=== PATIENT | female | born 1960 | race Caucasian/White ===

== ENCOUNTER 2021-04-12 16:42 | Outpatient (CLI) | payer MEDICAID | END 2021-04-12 16:43 | disposition home or self-care (01) | LOC: COV 16:42 | PROVIDERS: ATTEND Internal Medicine Gastroenterology | DX: Z01.812 Encounter for preprocedural laboratory examination (principal); K52.9 Noninfective gastroenteritis and colitis, unspecified; R63.4 Abnormal weight loss; Z20.822 Contact with and (suspected) exposure to COVID-19 ==

== ENCOUNTER 2022-10-26 11:35 | Outpatient (CLI) | payer MEDICAID | END 2022-10-26 11:36 | disposition critical access hospital (66) | LOC: EMS 11:35 | DX: R40.20 Unspecified coma (principal); J96.91 Respiratory failure, unspecified with hypoxia; J96.92 Respiratory failure, unspecified with hypercapnia; E16.2 Hypoglycemia, unspecified; I95.9 Hypotension, unspecified | CPT/HCPCS: A0425; A0433; A0999 ==

== ENCOUNTER 2022-10-26 11:58 | Inpatient (IN) | payer MEDICAID ==
--- NOTE | 2022-10-26 12:09 | ED Physician Documentation ---
History of Present Illness - Stated complaint Stated Complaint: FOUND DOWN - History obtained from History obtained from: EMS - Additonal information Additional information: 62-year-old woman brought in by ambulance. Reportedly has a history of both brain and lung cancer, recent diagnosis and is reportedly full code. Per EMS, she frequently has episodes of altered mental status, and the family just generally puts her back to bed. She had one today that lasted longer than usual and there for CPR was started, although there was no confirmation of pulselessness. On EMS arrival she did have a pulse and was intubated. She had some low blood pressures And periintubation was given dopamine although that has stopped on arrival. Of note the paramedics stated it was an empty bottle of Haldol, liquid at the bedside. It did not belong to her. Reportedly the family said it had liquid in it previously but now it was empty. Review of Systems Unable to obtain: [facility] PD PAST MEDICAL HISTORY - Present Medications Home Medications: Ambulatory Orders Medication Instructions Recorded Confirmed Albuterol Sulf [Ventolin Hfa 1 - 2 puffs INH Q4HR PRN 10/26/22 10/26/22 Inhaler] Duloxetine HCl [Cymbalta] 60 mg PO DAILY 10/26/22 10/26/22 Metoprolol Succinate [Toprol Xl] 50 mg PO DAILY 10/26/22 10/26/22 Omeprazole Magnesium 20 mg PO DAILY 10/26/22 10/26/22 Promethazine [Phenergan] 25 mg PO Q6H PRN 10/26/22 10/26/22 Trazodone HCl 300 mg PO HS 10/26/22 10/26/22 clonazePAM [Clonazepam] 1 mg PO DAILY PRN 10/26/22 10/26/22 estradioL [Estrace] 1 mg PO DAILY 10/26/22 10/26/22 methocarbamoL [Methocarbamol] 750 mg PO 10/26/22 oxyCODONE [Roxicodone] 5 mg PO Q8HR PRN 10/26/22 10/26/22 - Allergies Allergies/Adverse Reactions: Allergies Allergy/AdvReac Type Severity Reaction Status Date / Time Unable to Assess Allergy Verified 10/26/22 12:06 PD ED PE NORMAL - Vitals Vital signs reviewed: Yes - General General: Other (She is unresponsive but does seem to have some spontaneous movement albeit very intermittent.) - HEENT HEENT: Other (Small pupils, nonreactive; Endotracheal tube in place) - Cardiac Cardiac: RRR, No murmur - Respiratory Respiratory: Other (On the ventilator with bilateral breath sounds) - Abdomen Abdomen: Non tender - Derm Derm: Normal color, Warm and dry - Extremities Extremities: No edema, No calf tenderness / cord - Neuro Eye Opening: None Motor: None Verbal: None GCS Score: 3 Results - Vitals Vitals: Vital Signs - 24 hr 10/26/22 10/26/22 10/26/22 12:06 12:25 12:56 Temperature 35.8 C L Heart Rate 93 16 L 87 Respiratory 18 18 Rate Blood Pressure 104/61 76/54 L O2 Saturation 99 100 10/26/22 10/26/22 10/26/22 13:00 13:15 13:22 Temperature 33.9 C L 36.2 C L 36.2 C L Heart Rate 82 88 86 Respiratory 18 18 18 Rate Blood Pressure 79/62 L 113/84 H 119/78 O2 Saturation 100 100 100 10/26/22 10/26/22 10/26/22 13:30 13:42 13:55 Temperature 36.3 C L 36.4 C L 36.6 C Heart Rate 86 83 79 Respiratory 18 18 18 Rate Blood Pressure 109/74 92/69 129/82 H O2 Saturation 100 100 100 10/26/22 10/26/22 10/26/22 14:00 14:18 15:40 Temperature 36.6 C 36.9 C 37.8 C Heart Rate 76 81 80 Respiratory 18 18 18 Rate Blood Pressure 113/89 H 101/76 106/79 O2 Saturation 100 10 L 100 10/26/22 10/26/22 15:48 16:10 Temperature 37.8 C 37.9 C Heart Rate 82 78 Respiratory 18 18 Rate Blood Pressure 108/79 127/88 H O2 Saturation 100 100 Oxygen O2 Source Mechanical ventilator - EKG (time done) 1253 Rate: Rate (enter#) (88) Rhythm: NSR [place]: LAD Intervals: Normal GA, Prolonged QT QRS: Normal Ischemia: Non specific changes - Labs Labs: Laboratory Tests 10/26/22 10/26/22 10/26/22 12:30 12:31 12:31 WBC 34.4 H RBC 4.35 Hgb 10.8 L Hct 36.0 L MCV 82.8 MCH 24.8 L MCHC 30.0 L RDW 15.9 H Plt Count 424 MPV 10.0 Neut # (Auto) [employer] Lymph # (Auto) [employer] Rains # (Auto) [employer] Eos # (Auto) [employer] Baso # (Auto) [employer] Absolute Nucleated RBC [employer] Total Counted 100 Band Neuts % (Manual) 3 Abnorm Lymph % (Manual) 0 Myelocytes % 1 H Nucleated RBC % [employer] Neutrophils # (Manual) 29.9 H Lymphocytes # (Manual) 1.4 L Monocytes # (Manual) 2.8 H Eosinophils # (Manual) 0.0 Basophils # (Manual) 0.0 Differential Comment MANUAL DIFFERENTIAL PT 12.7 H INR 1.1 Bld Gas Analysis Time 1242 Sample Site LEFT RADIAL ABG pH 7.21 L ABG pCO2 54 H ABG pO2 268 H* ABG HCO3 21.3 L ABG Total CO2 23.0 ABG O2 Saturation 99 H ABG Base Excess -6.7 L [place] Test POSITIVE VBG pH VBG pCO2 VBG pO2 VBG HCO3 VBG Total CO2 VBG O2 Saturation VBG Base Excess Respiration Rate 16 O2 Delivery Device VENTILATOR Vent Mode ASSIST/CONTROL Tidal Volume 450 PEEP 5 Sodium Potassium Chloride Carbon Dioxide Anion Gap BUN Creatinine Estimated GFR (MDRD) Glucose Lactic Acid Calcium Phosphorus Magnesium Total Bilirubin AST ALT Alkaline Phosphatase Total Creatine Kinase Total Protein Albumin Globulin Albumin/Globulin Ratio TSH Urine Color Urine Clarity Urine pH Ur Specific [place] Urine Protein Urine Glucose (UA) Urine Ketones Urine Occult Blood Urine Nitrite Urine Bilirubin Urine Urobilinogen Ur Leukocyte Esterase Urine RBC Urine WBC Ur Squamous Epith Cells Urine Bacteria Urine Casts Ur Microscopic Review Urine Culture Comments Nasal Adenovirus (PCR) Nasal B. parapertussis DNA (PCR) Nasal Coronavir 229E PCR Nasal Coronavir HKU1 PCR Nasal Coronavir NL63 PCR Nasal Coronavir OC43 PCR Nasal Enterovir/Rhinovir PCR Nasal Influenza B PCR Nasal Influenza A PCR Nasal Parainfluen 1 PCR Nasal Parainfluen 2 PCR Nasal Parainfluen 3 PCR Nasal Parainfluen 4 PCR Nasal RSV (PCR) Nasal B.pertussis DNA PCR Nasal C.pneumoniae (PCR) Wilfred Human Metapneumo PCR Nasal M.pneumoniae (PCR) Nasal SARS-CoV-2 (PCR) Salicylates Urine Opiates Screen Ur Oxycodone Screen Urine Methadone Screen Ur Propoxyphene Screen Acetaminophen Ur Barbiturates Screen Ur Tricyclics Screen Ur Phencyclidine Scrn Ur Amphetamine Screen U Methamphetamines Scrn U Benzodiazepines Scrn Urine Cocaine Screen U Cannabinoids Screen Ethyl Alcohol 10/26/22 10/26/22 10/26/22 12:31 12:31 12:31 WBC RBC Hgb Hct MCV MCH MCHC RDW Plt Count MPV Neut # (Auto) Lymph # (Auto) Rains # (Auto) Eos # (Auto) Baso # (Auto) Absolute Nucleated RBC Total Counted Band Neuts % (Manual) Abnorm Lymph % (Manual) Myelocytes % Nucleated RBC % Neutrophils # (Manual) Lymphocytes # (Manual) Monocytes # (Manual) Eosinophils # (Manual) Basophils # (Manual) Differential Comment PT INR Bld Gas Analysis Time Sample Site ABG pH ABG pCO2 ABG pO2 ABG HCO3 ABG Total CO2 ABG O2 Saturation ABG Base Excess [place] Test VBG pH VBG pCO2 VBG pO2 VBG HCO3 VBG Total CO2 VBG O2 Saturation VBG Base Excess Respiration Rate O2 Delivery Device Vent Mode Tidal Volume PEEP Sodium 145 Potassium 2.7 L Chloride 112 H Carbon Dioxide 22 Anion Gap 11.0 BUN 37 H Creatinine 1.7 H Estimated GFR (MDRD) 30 L Glucose 13 L* Lactic Acid 2.0 Calcium 6.1 L* Phosphorus 6.6 H Magnesium 0.8 L* Total Bilirubin 0.4 AST 64 H ALT 19 Alkaline Phosphatase 49 Total Creatine Kinase 176 Total Protein 6.3 L Albumin 3.0 L Globulin 3.3 Albumin/Globulin Ratio 0.9 L TSH 7.10 H Urine Color Urine Clarity Urine pH Ur Specific [place] Urine Protein Urine Glucose (UA) Urine Ketones Urine Occult Blood Urine Nitrite Urine Bilirubin Urine Urobilinogen Ur Leukocyte Esterase Urine RBC Urine WBC Ur Squamous Epith Cells Urine Bacteria Urine Casts Ur Microscopic Review Urine Culture Comments Nasal Adenovirus (PCR) Nasal B. parapertussis DNA (PCR) Nasal Coronavir 229E PCR Nasal Coronavir HKU1 PCR Nasal Coronavir NL63 PCR Nasal Coronavir OC43 PCR Nasal Enterovir/Rhinovir PCR Nasal Influenza B PCR Nasal Influenza A PCR Nasal Parainfluen 1 PCR Nasal Parainfluen 2 PCR Nasal Parainfluen 3 PCR Nasal Parainfluen 4 PCR Nasal RSV (PCR) Nasal B.pertussis DNA PCR Nasal C.pneumoniae (PCR) Wilfred Human Metapneumo PCR Nasal M.pneumoniae (PCR) Nasal SARS-CoV-2 (PCR) Salicylates < 6.0 Urine Opiates Screen Ur Oxycodone Screen Urine Methadone Screen Ur Propoxyphene Screen Acetaminophen < 10 L Ur Barbiturates Screen Ur Tricyclics Screen Ur Phencyclidine Scrn Ur Amphetamine Screen U Methamphetamines Scrn U Benzodiazepines Scrn Urine Cocaine Screen U Cannabinoids Screen Ethyl Alcohol < 5.0 10/26/22 10/26/22 10/26/22 12:31 12:44 13:00 WBC RBC Hgb Hct MCV MCH MCHC RDW Plt Count MPV Neut # (Auto) Lymph # (Auto) Rains # (Auto) Eos # (Auto) Baso # (Auto) Absolute Nucleated RBC Total Counted Band Neuts % (Manual) Abnorm Lymph % (Manual) Myelocytes % Nucleated RBC % Neutrophils # (Manual) Lymphocytes # (Manual) Monocytes # (Manual) Eosinophils # (Manual) Basophils # (Manual) Differential Comment PT INR Bld Gas Analysis Time Sample Site ABG pH ABG pCO2 ABG pO2 ABG HCO3 ABG Total CO2 ABG O2 Saturation ABG Base Excess [place] Test VBG pH 7.156 L VBG pCO2 55.8 H VBG pO2 169.5 H VBG HCO3 19.3 L VBG Total CO2 21.0 L VBG O2 Saturation 98.6 H VBG Base Excess -9.6 L Respiration Rate O2 Delivery Device Vent Mode Tidal Volume PEEP Sodium Potassium Chloride Carbon Dioxide Anion Gap BUN Creatinine Estimated GFR (MDRD) Glucose Lactic Acid Calcium Phosphorus Magnesium Total Bilirubin AST ALT Alkaline Phosphatase Total Creatine Kinase Total Protein Albumin Globulin Albumin/Globulin Ratio TSH Urine Color YELLOW Urine Clarity CLEAR Urine pH 6.0 Ur Specific [place] >=1.030 H Urine Protein 100 H Urine Glucose (UA) NEGATIVE Urine Ketones NEGATIVE Urine Occult Blood MODERATE H Urine Nitrite NEGATIVE Urine Bilirubin NEGATIVE Urine Urobilinogen 0.2 (NORMAL) Ur Leukocyte Esterase NEGATIVE Urine RBC 0-5 Urine WBC 0-3 Ur Squamous Epith Cells FEW Squamous Urine Bacteria Few Urine Casts 0-2 Hyaline Casts Ur Microscopic Review INDICATED Urine Culture Comments NOT INDICATED Nasal Adenovirus (PCR) NOT DETECTED Nasal B. parapertussis DNA (PCR) NOT DETECTED Nasal Coronavir 229E PCR NOT DETECTED Nasal Coronavir HKU1 PCR NOT DETECTED Nasal Coronavir NL63 PCR NOT DETECTED Nasal Coronavir OC43 PCR NOT DETECTED Nasal Enterovir/Rhinovir PCR NOT DETECTED Nasal Influenza B PCR NOT DETECTED Nasal Influenza A PCR NOT DETECTED Nasal Parainfluen 1 PCR NOT DETECTED Nasal Parainfluen 2 PCR NOT DETECTED Nasal Parainfluen 3 PCR NOT DETECTED Nasal Parainfluen 4 PCR NOT DETECTED Nasal RSV (PCR) NOT DETECTED Nasal B.pertussis DNA PCR NOT DETECTED Nasal C.pneumoniae (PCR) NOT DETECTED Wilfred Human Metapneumo PCR NOT DETECTED Nasal M.pneumoniae (PCR) NOT DETECTED Nasal SARS-CoV-2 (PCR) NOT DETECTED Salicylates Urine Opiates Screen NEGATIVE Ur Oxycodone Screen NEGATIVE Urine Methadone Screen POSITIVE H Ur Propoxyphene Screen NEGATIVE Acetaminophen Ur Barbiturates Screen NEGATIVE Ur Tricyclics Screen NEGATIVE Ur Phencyclidine Scrn NEGATIVE Ur Amphetamine Screen NEGATIVE U Methamphetamines Scrn NEGATIVE U Benzodiazepines Scrn NEGATIVE Urine Cocaine Screen NEGATIVE U Cannabinoids Screen POSITIVE H Ethyl Alcohol 10/26/22 10/26/22 15:34 15:34 WBC RBC Hgb Hct MCV MCH MCHC RDW Plt Count MPV Neut # (Auto) Lymph # (Auto) Rains # (Auto) Eos # (Auto) Baso # (Auto) Absolute Nucleated RBC Total Counted Band Neuts % (Manual) Abnorm Lymph % (Manual) Myelocytes % Nucleated RBC % Neutrophils # (Manual) Lymphocytes # (Manual) Monocytes # (Manual) Eosinophils # (Manual) Basophils # (Manual) Differential Comment PT INR Bld Gas Analysis Time Sample Site ABG pH ABG pCO2 ABG pO2 ABG HCO3 ABG Total CO2 ABG O2 Saturation ABG Base Excess [place] Test VBG pH 7.232 L VBG pCO2 52.2 H VBG pO2 59.4 H VBG HCO3 21.5 L VBG Total CO2 23.1 L VBG O2 Saturation 90.2 H VBG Base Excess -6.3 L Respiration Rate O2 Delivery Device Vent Mode Tidal Volume PEEP Sodium 140 Potassium 2.9 L Chloride 106 Carbon Dioxide 21 Anion Gap 13.0 BUN 42 H Creatinine 1.9 H Estimated GFR (MDRD) 27 L Glucose 141 H Lactic Acid Calcium 7.6 L Phosphorus 4.5 Magnesium 1.6 L Total Bilirubin AST ALT Alkaline Phosphatase Total Creatine Kinase Total Protein Albumin Globulin Albumin/Globulin Ratio TSH Urine Color Urine Clarity Urine pH Ur Specific [place] Urine Protein Urine Glucose (UA) Urine Ketones Urine Occult Blood Urine Nitrite Urine Bilirubin Urine Urobilinogen Ur Leukocyte Esterase Urine RBC Urine WBC Ur Squamous Epith Cells Urine Bacteria Urine Casts Ur Microscopic Review Urine Culture Comments Nasal Adenovirus (PCR) Nasal B. parapertussis DNA (PCR) Nasal Coronavir 229E PCR Nasal Coronavir HKU1 PCR Nasal Coronavir NL63 PCR Nasal Coronavir OC43 PCR Nasal Enterovir/Rhinovir PCR Nasal Influenza B PCR Nasal Influenza A PCR Nasal Parainfluen 1 PCR Nasal Parainfluen 2 PCR Nasal Parainfluen 3 PCR Nasal Parainfluen 4 PCR Nasal RSV (PCR) Nasal B.pertussis DNA PCR Nasal C.pneumoniae (PCR) Wilfred Human Metapneumo PCR Nasal M.pneumoniae (PCR) Nasal SARS-CoV-2 (PCR) Salicylates Urine Opiates Screen Ur Oxycodone Screen Urine Methadone Screen Ur Propoxyphene Screen Acetaminophen Ur Barbiturates Screen Ur Tricyclics Screen Ur Phencyclidine Scrn Ur Amphetamine Screen U Methamphetamines Scrn U Benzodiazepines Scrn Urine Cocaine Screen U Cannabinoids Screen Ethyl Alcohol - Rads (name of study) Initial single view chest x-ray showed appropriate placement of the endotr acheal tube without obvious abnormality otherwise. Radiology: Final report received, EMP read indepedently Second chest x-ray for line placement showed right IJ CVC in SVC without complication. Radiology: Final report received, EMP read indepedently CT of the head without contrast demonstrates left temporal hypodensity consistent with known underlying malignancy. No traumatic findings. Radiology: Final report received, EMP read indepedently CT of the cervical spine is without acute abnormality Radiology: Final report received, EMP read indepedently CT of the chest demonstrates satisfactory position of support lines and malignant collapse of the right lower lobe Radiology: Final report received, EMP read indepedently CT of the abdomen pelvis without contrast is unremarkable except for what was noted on the lung CT above. Radiology: Final report received, EMP read indepedently Procedures - Central Line - Major Central Line Preparation: Unable to obtain consent, Time out completed, Ultrasound used, Sterile prep and drape Central line location: Right IJ Central line type: Triple lumen Central line aftercare: Chlorhexidine disc placed, Secured, Placement confirmed, No pneumothorax, No complications, Bundle checklist complete, Pt tolerated well PD Medical Decision Making - ED course ED course: 62-year-old woman presents obtunded, prehospital may have had a cardiac arrest but no clear evidence of pulselessness but did receive a few minutes with CPR. She is a recent diagnosis of " lung and brain cancer" but the details of that are unknown. Reportedly the diagnosis was may be just a week ago. Per EMS there was a empty bottle of Haldol liquid that was not hers at the bedside that had previously been full so there is a concern for overdose. Differential diagnosis is broad and also includes intracranial hemorrhage related to tumors. She was seen at the bedside immediately upon arrival, stabilized on the ventilator and a central line was placed. She was noted to be hypoglycemic "low " and was given amp of D50. 12:40 PM: She has become hypotensive and her temperature is noted to be 33 degrees. Levophed is begun through the central line and a warming unit placed. Update 12:48 PM, ABG reviewed. She has a respiratory acidosis. Advised RT Sree to increase respiratory rate from 14->16, and increase tidal volume from 450->550 and decrease oxygen from 100% to titrate down. Update 12:54 PM, fingerstick blood sugar after the administration of D50 only in the mid 70s, will start a D10 drip. 1:30pm: Granddaughter is at the bedside and is advocating for the patient. She states that about 2 weeks ago she was diagnosed with lung cancer with mets to brain. If she overdosed on Haldol which she corroborates that she had a bottle of Haldol that had belonged to the patient's mother when she was in hospice, it would have been about 5 AM today. There was no talk of suicidal ideation at any point, but had made some statements like "I am going to go see my ancestors soon." Her blood sugar dropped again into the teens and D50 was repeated, this was before the D10 drip had been started. She also has significant electrolyte abnormalities including hypokalemia, hypomagnesemia, and hypocalciumia all of which were repleted IV. I called poison control to get their input.Given her hypotension, shock, and hypothermia sepsis is on the differential, albeit unlikely given the above data, but we will treat presumptively with IV antibiotics. Specifically the institutional broad-spectrum protocol of cefepime, Flagyl, and vancomycin. Spoke with Dr. Hubbard, poison control marine gear keeper who basically recommends close monitoring of her electrolytes and vital signs. He did note that it is possible that her recurrent hypoglycemia could be from an insulin like paraneoplastic syndrome from her lung cancer but that would not change treatment. The granddaughter brought in the med list and she has been on dexamethasone and she could be in adrenal crisis so we will bolus her with dexamethasone.Spoke with Dr. Hubbard, poison control marine gear keeper who basically recommends close monitoring of her electrolytes and vital signs. He did note that it is possible that her recurrent hypoglycemia could be from an insulin like paraneoplastic syndrome from her lung cancer but that would not change treatment. The granddaughter brought in the med list and she has been on dexamethasone and she could be in adrenal crisis so we will bolus her with dexamethasone. Update 4 PM, the nurse had difficulty with the NG, I personally placed an NG in the right nares confirmed with auscultated noise over the stomach and return of gastric juices. Repeat electrolytes demonstrate improvement in all indices, potassium went from 2.7 up to 2.9, calcium went from 6.1 up to 7.6, magnesium we nt from 0.8 up to 1.6. We will continue repletion. Blood sugar has been better. Awaiting completion of CT results for admission to ICU. Her temperature now is 37.9 so she is trending up and Tylenol was administered rectally. - Critical Care Time(min): 85 Time Includes: Direct patient care, Review records, Reassess patient, Document care, Coordinate care, Medical consult, Family consult for tx dec, See progress note Data interpretation: Labs, Pulse ox Procedures included in critical care time: Peripheral IV Procedures excluded from critical care time: Central IV, EKG Departure - Departure Disposition: 66 [facility] DC/Xfer Clinical Impression: Hypoglycemia, Hypomagnesemia, Hypokalemia, Hypocalcemia Hypotension Qualifiers: Hypotension type: unspecified hypotension type Qualified Code(s): I95.9 - Hypotension, unspecified Hypothermia Qualifiers: Encounter type: initial encounter Qualified Code(s): T68.XXXA - Hypothermia, initial encounter Respiratory failure Qualifiers: Chronicity: acute Respiratory failure complication: unspecified whether with hypoxia or hypercapnia Qualified Code(s): J96.00 - Acute respiratory failure, unspecified whether with hypoxia or hypercapnia Condition: Critical
[2022-10-26] MEDS ORDERED: PROPOFOL 1000 MG/100 ML 1,000 MG/100 ML BOTTLE IV STA (12:18)
[2022-10-26] MEDS ORDERED: PROPOFOL 1000 MG/100 ML 1,000 MG/100 ML BOTTLE IV ONE ×2 (12:20→21:04)
[2022-10-26] MEDS ORDERED: DEXTROSE 50% ABBOJECT 25 GM/50 ML SYRINGE ONE (12:30)
[2022-10-26] MEDS ORDERED: DEXTROSE 50% ABBOJECT 25 GM/50 ML SYRINGE IVP STA ×2 (12:36→13:28)
[2022-10-26] MEDS ORDERED: NOREPINEPHRINE/D5W 8 MG/250 ML BAG IV ONE (12:43)
[2022-10-26 12:46] LABS: BASOPHILS % (AUTO) 0.2 %; HGB - HEMOGLOBIN 10.8 g/dL (12.0-16.0); LYMPHOCYTES % (AUTO) 5.2 %; MEAN CORPUSCULAR HEMOGLOBIN 24.8 pg (27.0-31.0); MEAN CORPUSCULAR VOLUME 82.8 fL (81.0-99.0); MONOCYTES % (AUTO) 8.2 %; NEUTROPHILS % (AUTO) 83.8 %; PLT - PLATELET COUNT 424 10^3/uL (130-450); RED BLOOD COUNT 4.35 10^6/uL (4.20-5.40); RED CELL DISTRIBUTION WIDTH 15.9 % (12.0-15.0); VBG BASE EXCESS -9.6 mmol/L (-2 - +2); VBG HCO3 19.3 mmol/L (23-28); VBG OXYGEN SATURATION 98.6 % (60-80); VBG PCO2 55.8 mmHg (41-51); VBG PO2 169.5 mmHg (25-47); WHITE BLOOD COUNT 34.4 x10^3/uL (4.8-10.8)
[2022-10-26 12:46] LABS: MUDS CUTOFF CONCENTRATIONS CUTOFF CONC BELOW:
[2022-10-26 12:47] LABS: ABG HCO3 21.3 mmol/L (22.0-26.0); ABG PCO2 54 mmHg (34-45); ABG PH 7.21 (7.35-7.45)
[2022-10-26 12:48] LABS: ABG BASE EXCESS -6.7 mmol/L (-2.0-3.0); ABG MODE OF VENTILATION ASSIST/CONTROL; ABG OXYGEN SATURATION 99 % (94-98); ABG RESPIRATORY RATE 16 b/min; ALLEN TEST POSITIVE
[2022-10-26] MEDS ORDERED: NOREPINEPHRINE/D5W 8 MG/250 ML BAG IV STA (12:48)
--- NOTE | 2022-10-26 12:48 | XRAY Report ---
PROCEDURE: Chest for Line Placement INDICATIONS: intubated TECHNIQUE: One view of the chest was acquired. COMPARISON: None. FINDINGS: Surgical changes and devices: ET tube in satisfactory position, the tip which projects approximately 4.6 cm above the nolvia. Transcutaneous pacer. Lungs and pleura: No pleural effusions or pneumothorax. Lungs are clear. Mediastinum: Mediastinal contours appear normal. Heart size is normal. Bones and chest wall: No suspicious bony lesions. Overlying soft tissues appear unremarkable. IMPRESSION: ET tube in satisfactory position. No gross pulmonary infiltrates. Reviewed by: Madan Reyes MD on 10/26/2022 12:46 PM PST Approved by: Madan Reyes MD on 10/26/2022 12:46 PM PST Station ID: [id number]
--- NOTE | 2022-10-26 12:50 | XRAY Report ---
PROCEDURE: Chest for Line Placement INDICATIONS: RIJ CVC TECHNIQUE: One view of the chest was acquired. COMPARISON: None. FINDINGS: Surgical changes and devices: ET tube tip is approximately 4 cm above the nolvia. Right internal jug ular central venous catheter tip is in SVC.. Lungs and pleura: No pleural effusions or pneumothorax. Lungs are clear. Mediastinum: Mediastinal contours appear normal. Heart size is mildly enlarged. Bones and chest wall: No suspicious bony lesions. Overlying soft tissues appear unremarkable. IMPRESSION: Right internal jugular central venous catheter tip is in SVC. ET tube tip is approximately 4 cm above the nolvia. No focal infiltrate, pleural effusion or pneumothorax. Reviewed by: Javi Urrutia MD on 10/26/2022 12:49 PM PST Approved by: Javi Urrutia MD on 10/26/2022 12:49 PM PST Station ID: [id number]
[2022-10-26 12:53] LABS: ABNORMAL LYMPHS % (MANUAL) 0 %
[2022-10-26 12:55] LABS: INR 1.1 (0.8-1.2); PT - PROTHROMBIN TIME 12.7 secs (9.9-12.6)
[2022-10-26 13:00] LABS: ABG PO2 268 mmHg (80-100)
[2022-10-26 13:01] LABS: VBG PH 7.156 (7.31-7.41)
[2022-10-26 13:01] LABS: AMPHETAMINE SCREEN,URINE NEGATIVE (NEGATIVE); BARBITURATE SCREEN,UR NEGATIVE (NEGATIVE); BENZODIAZEPINES SCREEN, URINE NEGATIVE (NEGATIVE); COCAINE SCREEN URINE NEGATIVE (NEGATIVE); METHADONE SCREEN, URINE POSITIVE (NEGATIVE); METHAMPHETAMINES SCREEN, URINE NEGATIVE (NEGATIVE); OPIATE SCREEN, URINE NEGATIVE (NEGATIVE); OXYCODONE SCREEN, URINE NEGATIVE (NEGATIVE); PROPOXYPHENE SCREEN, URINE NEGATIVE (NEGATIVE); THC CANNABINOID SCREEN, URINE POSITIVE (NEGATIVE); TRICYCLIC ANTIDEPRESSANT,URINE NEGATIVE (NEGATIVE)
[2022-10-26 13:04] LABS: BILIRUBIN,URINE NEGATIVE (NEGATIVE); GLUCOSE, URINE (UA) NEGATIVE (NEGATIVE); KETONES,URINE (UA) NEGATIVE (NEGATIVE); LEUKOCYTE ESTERASE, URINE NEGATIVE (NEGATIVE); NITRITE,URINE NEGATIVE (NEGATIVE); OCCULT BLOOD,URINE MODERATE (NEGATIVE); PROTEIN,URINE 100 mg/dL (NEGATIVE); UROBILINOGEN,URINE 0.2 (NORMAL) E.U./dL (NORMAL)
[2022-10-26 13:06] LABS: CLARITY,URINE CLEAR (CLEAR)
[2022-10-26 13:07] LABS: BACTERIA,URINE Few /HPF (None Seen); RBC,URINE 0-5 /HPF (0-5); SQUAMOUS EPITHELIAL CELL,UR FEW Squamous (<= Few); WBC,URINE 0-3 /HPF (0-5)
[2022-10-26 13:14] LABS: BAND NEUTROPHILS % (MANUAL) 3 %; DIFFERENTIAL COMMENT MANUAL DIFFERENTIAL; LYMPHOCYTES # (MANUAL) 1.4 10^3/uL (1.5-3.5); LYMPHOCYTES % (MANUAL) 4 %; MONOCYTES # (MANUAL) 2.8 10^3/uL (0.0-1.0); MYELOCYTES % (MANUAL) 1 %; NEUTROPHILS # (MANUAL) 29.9 10^3/uL (1.5-6.6)
[2022-10-26 13:18] LABS: ACETAMINOPHEN < 10 ug/mL (10-30); ALBUMIN/GLOBULIN RATIO 0.9 (1.0-2.2); ALKALINE PHOSPHATASE 49 IU/L (42-121); ALT ALANINE AMINOTRANSFERASE 19 IU/L (10-60); AST ASPARTATE AMINOTRANSFERASE 64 IU/L (10-42); BILIRUBIN,TOTAL 0.4 mg/dL (0.2-1.0); BUN - BLOOD UREA NITROGEN 37 mg/dL (6-20); CARBON DIOXIDE - CO2 22 mmol/L (21-32); CHLORIDE 112 mmol/L (101-111); CK- CREATINE KINASE 176 IU/L (22-269); CREATININE 1.7 mg/dL (0.4-1.0); ETOH - ETHANOL < 5.0 mg/dL; GFR - MDRD 30 (>89); PHOSPHORUS 6.6 mg/dL (2.5-4.6); POTASSIUM 2.7 mmol/L (3.5-5.0); SALICYLATE < 6.0 mg/dL; SODIUM 145 mmol/L (135-145); TOTAL PROTEIN 6.3 g/dL (6.7-8.2)
[2022-10-26 13:28] LABS: CALCIUM 6.1 mg/dL (8.5-10.3); GLUCOSE 13 mg/dL (70-100); MAGNESIUM 0.8 mg/dL (1.7-2.8)
[2022-10-26] MEDS ORDERED: MAGNESIUM SULFATE 2 GRAM 2 GM/50 ML BAG IV ONE ×2 (13:28→16:05)
[2022-10-26] MEDS ORDERED: DEXTROSE 10% 1,000 ML IV STA (13:28)
[2022-10-26] MEDS ORDERED: CALCIUM CHLORIDE ABBOJECT 1000MG/10 ML SYRINGE IVP STA ×2 (13:28→16:05)
[2022-10-26] MEDS ORDERED: POTASSIUM CHLOR 10 MEQ/100 ML 10 MEQ/100 ML BAG IV STA (13:35)
[2022-10-26] MEDS ORDERED: metroNIDAZOLE 500 MG/100 ML 500 MG/100 ML BAG IV STA (13:36)
[2022-10-26] MEDS ORDERED: VANCOMYCIN INJ 1.5 GM in SODIUM CHLORIDE 0.9% 500 ML IV STA (13:36)
[2022-10-26] MEDS ORDERED: CEFEPIME 2 GM in SODIUM CHLORIDE 0.9% MINIBAG 100 ML IV STA (13:36)
[2022-10-26] MEDS ORDERED: DEXAMETHASONE 10 MG/ML VIAL IVP STA (13:44)
[2022-10-26] MEDS ORDERED: iohexoL-300 100 ML VIAL ONE (14:20)
[2022-10-26] MEDS ORDERED: fentaNYL 100 MCG/2 ML VIAL IVP STA (14:38)
[2022-10-26] MEDS: fentaNYL 2,500 MCG in SODIUM CHLORIDE 0.9% 200 ML IV STA (14:45)
[2022-10-26 15:42] LABS: B. PARAPERTUSSIS- RESP PCR PAN NOT DETECTED; B. PERTUSSIS- RESP PCR PANEL NOT DETECTED; C. PNEUMONIAE- RESP PCR PANEL NOT DETECTED; CORONAVIRUS 229E-RESP PCR NOT DETECTED; CORONAVIRUS HKU1-RESP PCR NOT DETECTED; CORONAVIRUS NL63-RESP PCR NOT DETECTED; CORONAVIRUS OC43-RESP PCR NOT DETECTED; HUMAN METAPNEUMOVIRUS NOT DETECTED; INFLUENZA A- RESP PCR PANEL NOT DETECTED; INFLUENZA B - RESP PCR PANEL NOT DETECTED; M. PNEUMONIAE- RESP PCR PANEL NOT DETECTED; PARAINFLUENZA VIRUS 1 NOT DETECTED; PARAINFLUENZA VIRUS 2 NOT DETECTED; PARAINFLUENZA VIRUS 3 NOT DETECTED; PARAINFLUENZA VIRUS 4 NOT DETECTED; RHINOVIRUS/ENTEROVIRUS NOT DETECTED; RSV- RESP PCR PANEL NOT DETECTED; SARS-CoV-2 -RESP PCR PANEL NOT DETECTED
[2022-10-26 15:42] LABS: VBG BASE EXCESS -6.3 mmol/L (-2 - +2); VBG HCO3 21.5 mmol/L (23-28); VBG PCO2 52.2 mmHg (41-51); VBG PH 7.232 (7.31-7.41); VBG PO2 59.4 mmHg (25-47); VBG TOTAL CO2 23.1 mmol/L (24-29)
[2022-10-26 15:43] LABS: VBG OXYGEN SATURATION 90.2 % (60-80)
[2022-10-26 15:54] LABS: CALCIUM 7.6 mg/dL (8.5-10.3); CREATININE 1.9 mg/dL (0.4-1.0); MAGNESIUM 1.6 mg/dL (1.7-2.8); PHOSPHORUS 4.5 mg/dL (2.5-4.6); POTASSIUM 2.9 mmol/L (3.5-5.0)
--- NOTE | 2022-10-26 16:03 | CT Report ---
PROCEDURE: HEAD WO INDICATIONS: post arrest TECHNIQUE: Noncontrast 4.5 mm thick angled axial sections acquired from the foramen magnum to the vertex. For r adiation dose reduction, the following was used: automated exposure control, adjustment of mA and/or kV according to patient size. COMPARISON: None. FINDINGS: Image quality: Excellent. CSF spaces: Basal cisterns are patent. No extra-axial fluid collections. There is mild mass effect on the posterior horn of the left lateral ventricle. Ventricles are otherwise normal size and shape a nd position. Brain: There is low-density in the posterior left temporal region which is a typical pattern of vasog enic edema. This is suspicious for a possible metastatic lesion, which is not identified on the curre nt study. It is possible that the pattern may potentially also indicate a subacute infarct, as oppose d to vasogenic edema, with relative sparing of the cortex. There is no midline shift. There is only v cheo mild effect on the occipital horn of the left lateral ventricle. No hemorrhage identified. Skull and face: Calvarium and visualized facial bones are intact, without suspicious lesions. Sinuses: Visualized sinuses and mastoids are clear. IMPRESSION: Hypodensity in the deep white matter of the posterior left temporal region likely repres ents vasogenic edema. This raises the question of underlying malignancy. The pattern can potentially also represent subacute infarct pattern. Consider brain MRI with and without contrast versus CT head with contrast. Reviewed by: Madan Reyes MD on 10/26/2022 4:02 PM PST Approved by: Madan Reyes MD on 10/26/2022 4:02 PM PST Station ID: [id number]
[2022-10-26] MEDS ORDERED: ACETAMINOPHEN 650 MG SUPP PR STA (16:04)
--- NOTE | 2022-10-26 16:04 | CT Report ---
PROCEDURE: CERVICAL SPINE WO INDICATIONS: post arrest TECHNIQUE: Noncontrast 3 mm thick sections acquired from the skull base to the T4 level. Sagittal and coronal r eformats were then constructed. For radiation dose reduction, the following was used: automated exp osure control, adjustment of mA and/or kV according to patient size. COMPARISON: None. FINDINGS: Image quality: Excellent. Bones: No fractures or dislocations. Visualized superior ribs are intact. Soft tissues: Prevertebral soft tissues are normal in thickness. No paravertebral hematomas. No ap ical pneumothoraces. ET tube in satisfactory position. Tip of the ET tube extends to the level of T1 . IMPRESSION: No evidence acute cervical fracture or dislocation. Reviewed by: Madan Reyes MD on 10/26/2022 4:03 PM PST Approved by: Madan Reyes MD on 10/26/2022 4:03 PM PST Station ID: [id number]
[2022-10-26] MEDS ORDERED: POTASSIUM CHLOR 10 MEQ/100 ML 10 MEQ/100 ML BAG IV ONE (16:05)
--- NOTE | 2022-10-26 16:09 | CT Report ---
PROCEDURE: CHEST WO INDICATIONS: Postarrest, TAQUERIA, known lung cancer TECHNIQUE: Noncontrast 1mm axial images were acquired from the pulmonary apices to the posterior costophrenic an gles. Axial 5 mm soft tissue kernel reconstructions were performed as well as 8 mm axial MIP and cor onal and sagittal 5 mm reformations. For radiation dose reduction, the following was used: automate d exposure control, adjustment of mA and/or kV according to patient size. COMPARISON: CT abdomen and pelvis without contrast from today FINDINGS: Image quality: Excellent. Lungs and pleura: Complete collapse of the right lower lobe, with an S sign of Hughes appearance sugg esting a malignant obstruction. The right middle lobe and upper lobe are grossly clear, as is the lef t lung. Mild emphysematous change. Mediastinum: Heart size is normal. No pericardial effusion. No mediastinal adenopathy by size crit eria. Thoracic aorta and central pulmonary arteries are normal in size. Esophagus is normal in evan trip. No hiatal hernia. Bones and chest wall: ET tube in place. Dual lumen central line in place. No suspicious bony lesions . No vertebral body compression fractures. No axillary or supraclavicular adenopathy by size criter ia. Thyroid is grossly unremarkable. Abdomen: Please see the separate report for findings in the abdomen. IMPRESSION: 1. ET tube and central line in satisfactory position. 2. Presumed malignant collapse of the right lower lobe. CLINICAL RECOMMENDATION STATEMENTS: In patients <35 years with an ITN detected on CT, MRI, or extrathyroidal ultrasound, the Committee re commends further evaluation with dedicated thyroid ultrasound if the nodule is "e1 cm and has no susp icious imaging features, and if the patient has normal life expectancy. In patients "e35 years with an ITN detected on CT, MRI, or extrathyroidal ultrasound, the Committee r ecommends further evaluation with dedicated thyroid ultrasound if the nodule is "e1.5 cm and has no s uspicious imaging features, and if the patient has normal life expectancy. (ACR, 2014) Reviewed by: Madan Reyes MD on 10/26/2022 4:08 PM PST Approved by: Madan Reyes MD on 10/26/2022 4:08 PM PST Station ID: [id number]
--- NOTE | 2022-10-26 16:11 | CT Report ---
PROCEDURE: ABDOMEN/PELVIS WO INDICATIONS: Postarrest, TAQUERIA, known lung cancer TECHNIQUE: Noncontrast 5 mm thick sections acquired from the diaphragms to the symphysis. 5 mm coronal and sagi ttal reformats were then performed. For radiation dose reduction, the following was used: automated exposure control, adjustment of mA and/or kV according to patient size. COMPARISON: Noncontrast chest CT from the same date FINDINGS: Image quality: Excellent. ABDOMEN: Lung bases: Right lower lobe collapse. Heart size is normal. Solid organs: Liver and spleen are normal in size. Probable right lobe liver cyst. No obvious metast atic lesions identified in the liver. Gallbladder is surgically absent Pancreas is normal in contour s. No adrenal nodules. Kidneys are normal in size, without hydronephrosis or nephrolithiasis. Peritoneum and bowel: Unenhanced bowel loops demonstrate normal wall thickness and caliber. No free fluid or air. Nodes and vessels: No retroperitoneal or mesenteric adenopathy by size criteria. Aorta and inferior vena cava are normal in caliber. Miscellaneous: No ventral hernias. PELVIS: Genitourinary: Bladder wall thickness is normal. Miscellaneous: No inguinal hernias or adenopathy. Uterus is surgically absent. Bones: No suspicious bony lesions. No vertebral body compression fractures. IMPRESSION: 1. Right lower lobe collapse. 2. No evidence of malignancy in the abdomen and pelvis on this noncontrast CT. No evidence of acute a bdominal process. Reviewed by: Madan Reyes MD on 10/26/2022 4:10 PM PST Approved by: Madan Reyes MD on 10/26/2022 4:10 PM PST Station ID: [id number]
[2022-10-26] MEDS ORDERED: ALBUTEROL NEB 2.5 MG/3 ML INH PRN (16:17)
[2022-10-26] MEDS ORDERED: ONDANSETRON ODT 4 MG TABLET TL PRN (16:17)
[2022-10-26] MEDS ORDERED: SODIUM CHLORIDE FLUSH 0.9% 10 ML SYRINGE IVP PRN (16:17)
--- NOTE | 2022-10-26 16:27 | HISTORY & PHYSICAL EXAMINATION ---
Chief Complaint - Chief Complaint Chief Complaint: found down at home History of Present Illness - Admitted From Admitted From:: e via EMS - History Obtained From Records Reviewed: [facility] History obtained from: Dr. Stevenson and daughter Rima Peter Exam Limitations: she is intubated - History of Present Illness HPI Comment/Other: This unfortunate lady was seen at [facility] a few weeks ago. 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 The patient did not want treatment and came home. She has been home about 2 weeks and trying to decide if she wanted treatment or not. She and her daughter were reading articles they could find on the internet. More on the side of not wanting treatment. She has been getting more and more obtunded, and spends more time in bed sleeping. When she becomes very confused family would put her back to bed. She was last seen around 1 AM. When family heard her up and about at 5 AM this morning, they put her back to bed. They went to go check on her and found her unresponsive at 11 AM. An empty bottle of Haldol was next to her. That bottle was used to treat the patient's mother who of metastatic cancer and was left over from the hospice encounter. It is unclear if this patient took Haldol or not. She was found almost not breathing. CPR was started by daughter. They called EMS. Her systolic blood pressure was in the 80s. Pulse 93. Blood sugar 78 and given 1/4 amp of D50 and Intubated because of apnea. Brought to the emergency room. She has been aggressively resuscitated in the emergency room. Core body temperature was 35.8. Heart rate 93. Blood pressure 104/61. Respirations 18. And she is 99% on the vent. Levophed was started when her systolic blood pre ssure went to 76/54. Her laboratory work showed a potassium of 2.7. Chloride 112. BUN 37, creatinine 1.7. Glucose was 13 in spite of the interventions in the field and she is received 2 more treatments with D50 and is now on a D10 drip. Glucose is up to 141. Calcium was 6.1 and supplemented. Phosphorus is 6.6. Magnesium 0.8. TSH is 7.10. White cell count is 34,000. Initial blood gas showed a pH of 7.21, PCO2 54, O2 268. This is on assist-control ventilator, respiratory rate 16, tidal volume 450, PEEP of 5. Toxicology is positive for methadone, cannabinoids but negative for everything else. Imaging was done including chest x-ray, head CT, cervical spine CT, chest CT and abdomen pelvis CT. She has collapse of the right lower lobe, liver and spleen are normal. No metastatic disease notified in the liver. Pancreas is normal. Kidneys are normal. She has hypodensity in the deep white matter of the posterior left temporal region likely representing vasogenic edema. This raises the question of underlying malignancy, potentially representing a subacute infarct and as well. There recommending a brain MRI with and without contrast. Daughter is next of kin. No formal POA paperwork done. 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 of IA/stroke. Dad of unknown causes. All siblings decesed. Killed by serial killer, and IA. 2 kids are healthy x HTN Living arrangement: At home Living Situation: With family [place] Lives in her own trialer down from daughter. Daughter moved here to be w mom. [place]. From [place]. Smoker of cigs and pot. Lots and lots of pot. 1 ppd of cigs. In last few weeks heavy drinker. Former drug use. committed suicide right before marriage. Meds/Allgy - Home Medications Home Medications: Ambulatory Orders Medication Instructions Recorded Confirmed Albuterol Sulf [Ventolin Hfa 1 - 2 puffs INH Q4HR PRN 10/26/22 10/26/22 Inhaler] Duloxetine HCl [Cymbalta] 60 mg PO DAILY 10/26/22 10/26/22 Metoprolol Succinate [Toprol Xl] 50 mg PO DAILY 10/26/22 10/26/22 Omeprazole Magnesium 20 mg PO DAILY 10/26/22 10/26/22 Promethazine [Phenergan] 25 mg PO Q6H PRN 10/26/22 10/26/22 Trazodone HCl 300 mg PO HS 10/26/22 10/26/22 clonazePAM [Clonazepam] 1 mg PO DAILY PRN 10/26/22 10/26/22 estradioL [Estrace] 1 mg PO DAILY 10/26/22 10/26/22 methocarbamoL [Methocarbamol] 750 mg PO 10/26/22 oxyCODONE [Roxicodone] 5 mg PO Q8HR PRN 10/26/22 10/26/22 - Allergies Allergies/Adverse Reactions: Allergies Allergy/AdvReac Type Severity Reaction Status Date / Time Unable to Assess Allergy Verified 10/26/22 12:06 Review of Systems - Other Findings Other Findings: unable to obtain Prior Level of Functionality: she was able to feed herself, dress herself until these last few weeks when she started losing memory, getting more and more dependent on her daughter for food, housekeeping, and finally bathing. Exam - Vital Signs Reviewed Vital Signs: Yes Vital Signs: Vital Signs x48h Temp Pulse Resp BP Pulse Ox 10/26/22 16:10 37.9 C 78 18 127/88 H 100 10/26/22 15:48 37.8 C 82 18 108/79 100 10/26/22 15:40 37.8 C 80 18 106/79 100 10/26/22 14:18 36.9 C 81 18 101/76 10 L 10/26/22 14:00 36.6 C 76 18 113/89 H 100 10/26/22 13:55 36.6 C 79 18 129/82 H 100 10/26/22 13:42 36.4 C L 83 18 92/69 100 10/26/22 13:30 36.3 C L 86 18 109/74 100 10/26/22 13:22 36.2 C L 86 18 119/78 100 10/26/22 13:15 36.2 C L 88 18 113/84 H 100 10/26/22 13:00 33.9 C L 82 18 79/62 L 100 10/26/22 12:56 35.8 C L 87 18 76/54 L 100 10/26/22 12:25 16 L 10/26/22 12:06 93 18 104/61 99 - Physical Exam General Appearance: positive: Other (Intubated female who looks stated age, unresponsive to sternal rub but she is on propofol) Eyes Bilateral: positive: Other (Pupils are small, unreactive) ENT: positive: No signs of dehydration Neck: positive: No JVD. negative: Stiff neck Respiratory: positive: No respiratory distress, Rhonchi (Rhonchi right upper and middle lobe.), Other (On a ventilator, respiration controlled, No lung sounds right lung base) Cardiovascular: positive: Regular rate & rhythm Peripheral Pulses: positive: 0 Abdomen: positive: Other (Hypoactive bowel sounds, nondistended, Bearden in place draining yellow urine) Skin: positive: Other (Although core temperature is up to 37.8, hands and feet are ice cold. No cyanosis, no edema) Extremities: positive: Full ROM (On passive range of motion.), No pedal edema Neurologic/Psychiatric: positive: Other (Intubated, on propofol, no posturing) Conclusion/Plan - Problem List (1) Respiratory arrest Conclusion/Plan: This unfortunate female has had a gradually progressive illness, most likely terminal. Although she was in the midst of trying to figure out and was possibly considering treatment for this illness, I think the natural progression of disease snuck up on her faster than she realized. By description she was ob tunded, hypothermic, hypoglycemic and was guppy breathing with agonal respiration at the scene. She may have already been dying and we have stepped in the way of that with our resuscitative efforts. In speaking to her next of kin, her daughter, daughter feels that what was happening. She started CPR only because her mom wanted to be a full code. But in putting together the whole picture, she and her mom had discussed that mom would not want to be this way. Mom wanted CPR and resuscitation because she felt like she still has some quality of life left, and that she could be in this intermediate state of disease status a bit longer. Clearly, this was not the case with today's arrest. She remains hypotensive, requiring Levophed. Lactic acid is 2.0. Plan: Inpatient stay Full supportive care with Levophed, ventilator Daughter needs to speak to her brother, the patient's son. She says that she does not want make any decisions until she speaks to her brother. However she is leaning toward removing life support. Until that decision is made she would like us to do everything. (2) Obtundation Conclusion/Plan: A gradually worsening confusion and obtundation is described over the last couple of weeks. Patient was spending more more time in bed. Prior to this, the confusion was attributed to "dementia". Daughter does not remember a CT or an MRI being done to evaluate the dementia. There is also the question of the bottle of Haldol that was found at the bedside. Could this patient have done an overdose of Haldol. Other factors to cause obtundation would be electrolyte derangement, postobstructive pneumonia, tumor necrosis, and liver disease (she has a history of hepatitis). Plan: Hydration Watch telemetry to assess for QT and V. tach. At this time she is still a full code, but I am hoping the daughter will come in in the near future so that we can change her CODE STATUS. Steroids for brain mets Check ammonia level (3) Lung cancer metastatic to brain Conclusion/Plan: Patient is a smoker. Most likely related. At this time no treatment being offered.I do see that her white cell count is elevated. She most likely has a postobstructive picture with complete collapse of that right lower lung. Urinalysis is negative for infection. Brain shows evidence of possible tumor but no abscess. CT of abdomen is also not indicating infection. No antibiotics at this time - Lab Results Lab results reviewed: Yes Fish Bones: 10/26/22 12:31 10/26/22 15:34 - Diagnostic Imaging Results Diagnostic Imaging Results: positive: Final report reviewed Core Measures - Anticipated LOS I expect patient to be DC'd or transferred within 96 hours.: Yes - DVT/VTE - Prophylaxis VTE/DVT Prophylaxis med ordered at admit?: Yes
[2022-10-26 16:54] LABS: ABG HCO3 19.4 mmol/L (22.0-26.0); ABG OXYGEN SATURATION 99 % (94-98); ABG PCO2 34 mmHg (34-45); ABG PH 7.36 (7.35-7.45); ABG PO2 146 mmHg (80-100)
[2022-10-26 16:55] LABS: ABG MODE OF VENTILATION SIMV; ALLEN TEST POSITIVE
[2022-10-26] MEDS: PANTOPRAZOLE 40 MG VIAL IVP SCH (17:19)
[2022-10-26] MEDS: SODIUM CHLORIDE FLUSH 0.9% 10 ML SYRINGE IVP SCH (17:20)
[2022-10-26] MEDS: SODIUM CHLORIDE FLUSH 0.9% 10 ML SYRINGE IVP PRN (21:09)
[2022-10-26] MEDS: SODIUM CHLORIDE 0.9% 500 ML IV PRN (21:09)
[2022-10-26] MEDS: DEXAMETHASONE 4 MG/ML VIAL IVP SCH (21:09)
[2022-10-26] MEDS: D5.45NS W/20 MEQ KCL 1,000 ML IV SCH (21:48)
[2022-10-26] MEDS: PROPOFOL 1000 MG/100 ML 1,000 MG/100 ML BOTTLE IV STA (21:49)
[2022-10-27] MEDS: SODIUM CHLORIDE FLUSH 0.9% 10 ML SYRINGE IVP SCH ×6 (00:05→20:21)
[2022-10-27 00:25] LABS: CALCIUM, IONIZED 1.1 mmol/L (1.15-1.33); VBG PH 7.306 (7.31-7.41)
[2022-10-27 00:33] LABS: PHOSPHORUS 6.6 mg/dL (2.5-4.6); POTASSIUM 3.3 mmol/L (3.5-5.0)
[2022-10-27] MEDS ORDERED: CALCIUM GLUC 1,000MG/50ML-NACL 1,000 MG/50 ML BAG IV ONE ×2 (00:46→06:03)
[2022-10-27] MEDS: POTASSIUM CHLOR 20 MEQ/100 ML 20 MEQ/100 ML BAG IV SCH ×2 (01:25→02:13)
[2022-10-27] MEDS: DEXAMETHASONE 4 MG/ML VIAL IVP SCH ×4 (01:58→20:21)
[2022-10-27] MEDS: PROPOFOL 1000 MG/100 ML 1,000 MG/100 ML BOTTLE IV STA (05:14)
[2022-10-27] MEDS: fentaNYL 2,500 MCG in SODIUM CHLORIDE 0.9% 200 ML IV STA (05:30)
[2022-10-27] MEDS: SODIUM CHLORIDE FLUSH 0.9% 10 ML SYRINGE IVP PRN (05:36)
[2022-10-27 05:48] LABS: BASOPHILS % (AUTO) 0.2 %; HCT - HEMATOCRIT 31.2 % (37.0-47.0); HGB - HEMOGLOBIN 9.9 g/dL (12.0-16.0); LYMPHOCYTES # (AUTO) 0.8 10^3/uL (1.5-3.5); LYMPHOCYTES % (AUTO) 6.5 %; MEAN CORPUSCULAR HGB CONC 31.7 g/dL (32.0-36.0); MEAN CORPUSCULAR VOLUME 78.8 fL (81.0-99.0); MEAN PLATELET VOLUME 9.9 fL (7.9-10.8); MONOCYTES # (AUTO) 0.4 10^3/uL (0.0-1.0); MONOCYTES % (AUTO) 3.4 %; NEUTROPHILS # (AUTO) 11.1 10^3/uL (1.5-6.6); NEUTROPHILS % (AUTO) 89.2 %; PLT - PLATELET COUNT 236 10^3/uL (130-450); RED BLOOD COUNT 3.96 10^6/uL (4.20-5.40); RED CELL DISTRIBUTION WIDTH 15.5 % (12.0-15.0); WHITE BLOOD COUNT 12.5 x10^3/uL (4.8-10.8)
[2022-10-27 05:51] LABS: CALCIUM, IONIZED 1.1 mmol/L (1.15-1.33); VBG PH 7.31 (7.31-7.41)
[2022-10-27 06:00] LABS: CALCIUM 8.1 mg/dL (8.5-10.3); CREATININE 2.2 mg/dL (0.4-1.0); MAGNESIUM 1.8 mg/dL (1.7-2.8); POTASSIUM 3.6 mmol/L (3.5-5.0)
[2022-10-27] MEDS ORDERED: POTASSIUM CHLOR 20 MEQ/100 ML 20 MEQ/100 ML BAG IV ONE (06:03)
[2022-10-27] MEDS ORDERED: MAGNESIUM SULFATE 2 GRAM 2 GM/50 ML BAG IV ONE (06:03)
[2022-10-27 06:59] LABS: ABG BASE EXCESS -6.2 mmol/L (-2.0-3.0); ABG HCO3 17.6 mmol/L (22.0-26.0); ABG OXYGEN SATURATION 96 % (94-98); ABG PCO2 30 mmHg (34-45); ABG PH 7.39 (7.35-7.45); ABG PO2 86 mmHg (80-100); ABG TCO2 18.5 MMOL/L (21.0-29.0); ALLEN TEST POSITIVE
[2022-10-27 07:00] LABS: ABG MODE OF VENTILATION SIMV; ABG RESPIRATORY RATE 18 b/min
[2022-10-27] MEDS: PANTOPRAZOLE 40 MG VIAL IVP SCH (07:05)
[2022-10-27] MEDS: MORPHINE 2 MG/ML CARPUJECT IVP PRN ×3 (07:51→21:30)
[2022-10-27] MEDS: D5.45NS W/20 MEQ KCL 1,000 ML IV SCH (08:00)
[2022-10-27] MEDS ORDERED: ENOXAPARIN 40 MG/0.4 ML SYRINGE SUBQ SCH (09:00)
[2022-10-27] MEDS ORDERED: PROPOFOL 1000 MG/100 ML 1,000 MG/100 ML BOTTLE IV ONE (09:22)
[2022-10-27] MEDS: PROPOFOL 1000 MG/100 ML 1,000 MG/100 ML BOTTLE IV SCH ×4 (09:22→23:03)
--- NOTE | 2022-10-27 10:30 | PHARMACY PROGRESS NOTE ---
- Best Possible Medication History Admit Date and Time: 10/26/22 1617 Processed by: Nursing Medication History completed: Yes Secondary Source(s): Insurance records As the person ultimately responsible for medication therapy, providers are able to order a medication from an existing home medication list in [facility] via the "Reconcile Routine" prior to Confirmation of that medication by support dba. Such practice is discouraged except when the physician, in their clinical judgment, deems that a medical need exists for a medication without regard to previous use.
[2022-10-27] MEDS ORDERED: fentaNYL 2,500 MCG in SODIUM CHLORIDE 0.9% 200 ML IV SCH (12:00)
--- NOTE | 2022-10-27 14:28 | PROVIDER PROGRESS NOTE ---
Subjective - Prog Note Date Prog Note Date: 10/27/22 Prog Note Time: 14:25 - Subjective Subjective: She started waking up last night and needed fentanyl on top of her propofol. This morning she does open her eyes. Does not follow commands. We let her fe ntanyl drip run out and on the propofol she will occasionnaly follow the RN or aide with her eyes, and the RN asked that we put her back on fentanyl. Some of her family lives over [facility], and that is closed due to snow. So they are unable to come into the hospital. Blood pressure is still on the low side. She is 102/62, levophed was off at 5:30 this morning. Blood gases on current vent settings with a tidal volume of 520 showed her pH to be 7.39, PCO2 30, PO2 86. Base excess -6.2. O2 sat is 96%. Her rate is 18, SIMV, FiO2 40 and a PEEP of 5. I have gone ahead and decrease her tidal volume to 450 and The same rate since she has hyperventilated. She appears to have some element of metabolic acidosis on analysis. White cell count which I thought was elevated due to demargination has come down nicely without antibiotics. She is is 12.5 today and was 34.4 last night. She was hypotensive in the field, requiring Levophed in the ER. Creatinine went from 1.9-2.2. On electrolytes phosphorus has become high today, magnesium was supplemented yesterday and is normal today at 1.8. Ammonia level was 29.9. Current Medications - Current Medications Current Medications: Active Medications Acetaminophen (Acetaminophen 325 Mg Tablet) 650 mg PO Q4HR PRN PRN Reason: Pain 1 to 4, or Fever Albuterol (Albuterol Neb 2.5 Mg/3 Ml) 2.5 mg INH Q4HR PRN PRN Reason: Wheezing Dexamethasone (Dexamethasone 4 Mg/Ml Vial) 4 mg IVP Q6H OMARI Last Admin: 10/27/22 08:02 Dose: 4 mg Enoxaparin Sodium (Enoxaparin 40 Mg/0.4 Ml Syringe) 40 mg SUBQ DAILY OMARI Last Admin: 10/27/22 08:03 Dose: 40 mg Sodium Chloride (Normal Saline 0.9%) 500 mls @ 20 mls/hr IV Q24H PRN PRN Reason: TKO RATE Last Admin: 10/26/22 21:09 Dose: 20 mls/hr Propofol (Diprivan) 1,000 mg in 100 mls @ 4.35 mls/hr IV .Q23H [facility]; Protocol Last Admin: 10/27/22 09:22 Dose: 40 mcg/kg/min, 17.4 mls/hr Fentanyl 2,500 mcg/ Sodium (Chloride) 250 mls @ 7.25 mls/hr IV .[id number] [facility]; Protocol Last Admin: 10/27/22 12:29 Dose: 5 mcg/kg/hr, 36.25 mls/hr Morphine Sulfate (Morphine 2 Mg/Ml Carpuject) 2 mg IVP Q2HR PRN PRN Reason: Pain 8 to 10 Last Admin: 10/27/22 10:23 Dose: 2 mg Ondansetron HCl (Ondansetron Odt 4 Mg Tablet) 4 mg TL Q6HR PRN PRN Reason: Nausea / Vomiting Ondansetron HCl (Ondansetron 4 Mg/2 Ml Vial) 4 mg IVP Q6HR PRN PRN Reason: Nausea / Vomiting Pantoprazole Sodium (Pantoprazole 40 Mg Vial) 40 mg IVP QDAC [facility] Last Admin: 10/27/22 07:05 Dose: 40 mg Sodium Chloride (Sodium Chloride Flush 0.9% 10 Ml Syringe) 20 ml IVP PRN PRN PRN Reason: After Blood Draw Last Admin: 10/27/22 05:36 Dose: 20 ml Sodium Chloride (Sodium Chloride Flush 0.9% 10 Ml Syringe) 10 ml IVP 0100,0900 ,1700 [facility] Last Admin: 10/27/22 08:03 Dose: 10 ml Sodium Chloride (Sodium Chloride Flush 0.9% 10 Ml Syringe) 10 ml IVP PRN PRN PRN Reason: Per Line Care protocol Albuterol Sulf [Ventolin Hfa Inhaler] 1 - 2 puffs INH Q4HR PRN 10/26/22 Duloxetine HCl [Cymbalta] 60 mg PO DAILY 10/26/22 Metoprolol Succinate [Toprol Xl] 50 mg PO DAILY 10/26/22 Omeprazole Magnesium 20 mg PO DAILY 10/26/22 Promethazine [Phenergan] 25 mg PO Q6H PRN 10/26/22 Trazodone HCl 300 mg PO HS 10/26/22 clonazePAM [Clonazepam] 1 mg PO QPM PRN 10/26/22 estradioL [Estrace] 1 mg PO DAILY 10/26/22 methocarbamoL [Methocarbamol] 750 mg PO TID 10/26/22 oxyCODONE [Roxicodone] 5 mg PO Q8HR PRN 10/26/22 Objective - Vital Signs/Intake & Output Reviewed Vital Signs: Yes Vital Signs: Vital Signs x48h Temp Pulse Pulse Resp BP Pulse Ox 10/27/22 13:20 18 97 10/27/22 13:00 52 L 18 102/62 97 10/27/22 12:30 65 31 H 90 L 10/27/22 12:00 98 31 H 134/68 H 96 10/27/22 11:30 37.5 C 18 96 10/27/22 11:00 37.5 C 50 L 18 95/58 L 96 10/27/22 10:20 60 10/27/22 10:13 60 10/27/22 10:00 36.9 C 59 L 15 99/65 100 10/27/22 09:30 36.9 C 15 100 10/27/22 09:00 37.7 C 60 18 107/66 93 10/27/22 08:30 36.9 C 15 100 10/27/22 08:18 58 L 10/27/22 08:00 37.8 C 54 L 18 98/68 95 10/27/22 07:30 37.7 C 18 93 10/27/22 07:00 37.9 C 55 L 18 100/63 95 10/27/22 06:30 37.7 C 18 93 Intake & Output: Intake & Output 10/24/22 10/25/22 10/26/22 10/27/22 23:59 23:59 23:59 23:59 Intake Total 2336.629 1605.536 Output Total 146 2051 Balance 2190.629 -445.464 - Objective General Appearance: positive: Other (Intubated, on propofol, eyes are open. Not following commands. She does follow you with her eyes.) Eyes Bilateral: positive: PERRL, EOMI ENT: positive: No signs of dehydration Neck: positive: No JVD. negative: Stiff neck Respiratory: positive: No respiratory distress. negative: Wheezes, Rales, Rhonchi Cardiovascular: positive: Regular rate & rhythm Abdomen: positive: Nml bowel sounds, No distention Skin: positive: Warm, Dry, Other (Last night hands and feet were ice cold. They are warm today) Extremities: positive: Full ROM, No pedal edema Neurologic/Psychiatric: positive: Other (moving all extremities to pull at upper restraints and reposition her legs for comfort. throws of blankets w legs. eyes will open to my voice but no true recognition noted in her expression) - Lab Results Fish Bones: 10/27/22 05:35 10/27/22 05:35 Other Labs: Lab Results x24hrs 10/27/22 10/27/22 10/27/22 Range/Units 06:50 05:35 05:35 WBC (4.8-10.8) x10^3/uL RBC (4.20-5.40) 10^6/uL Hgb (12.0-16.0) g/dL Hct (37.0-47.0) % MCV (81.0-99.0) fL MCH (27.0-31.0) pg MCHC (32.0-36.0) g/dL RDW (12.0-15.0) % Plt Count (130-450) 10^3/uL MPV (7.9-10.8) fL Neut # (Auto) (1.5-6.6) 10^3/uL Lymph # (Auto) (1.5-3.5) 10^3/uL [place] # (Auto) (0.0-1.0) 10^3/uL Eos # (Auto) (0.0-0.7) 10^3/uL Baso # (Auto) (0.0-0.1) 10^3/uL Absolute Nucleated RBC x10^3/uL Nucleated RBC % /100WBC Bld Gas Analysis Time 0657 Sample Site LEFT RADIAL ABG pH 7.39 (7.35-7.45) ABG pCO2 30 L (34-45) mmHg ABG pO2 86 (80-100) mmHg ABG HCO3 17.6 L (22.0-26.0) mmol/L ABG Total CO2 18.5 L (21.0-29.0) MMOL/L ABG O2 Saturation 96 (94-98) % ABG Base Excess -6.2 L (-2.0-3.0) mmol/L [place] Test POSITIVE VBG pH 7.310 (7.31-7.41) VBG pCO2 (41-51) mmHg VBG pO2 (25-47) mmHg VBG HCO3 (23-28) mmol/L VBG Total CO2 (24-29) mmol/L VBG O2 Saturation (60-80) % VBG Base Excess (-2 - +2) mmol/L Ionized Calcium 1.10 L (1.15-1.33) mmol/L Respiration Rate 18 b/min O2 Delivery Device VENTILATOR Vent Mode SIMV FiO2 40.00 Tidal Volume 520 mL PEEP 5 cmH2O Sodium 137 (135-145) mmol/L Potassium 3.6 (3.5-5.0) mmol/L Chloride 106 (101-111) mmol/L Carbon Dioxide 18 L (21-32) mmol/L Anion Gap 13.0 (6-13) BUN 46 H (6-20) mg/dL Creatinine 2.2 H (0.4-1.0) mg/dL Estimated GFR (MDRD) 23 L (>89) Glucose 137 H (70-100) mg/dL Calcium 8.1 L (8.5-10.3) mg/dL Phosphorus 6.0 H (2.5-4.6) mg/dL Magnesium 1.8 (1.7-2.8) mg/dL Ammonia (7-35) umol/L Nasal Adenovirus (PCR) Nasal B. parapertussis DNA (PCR) Nasal Coronavir 229E PCR Nasal Coronavir HKU1 PCR Nasal Coronavir NL63 PCR Nasal Coronavir OC43 PCR Nasal Enterovir/Rhinovir PCR Nasal Influenza B PCR Nasal Influenza A PCR Nasal Parainfluen 1 PCR Nasal Parainfluen 2 PCR Nasal Parainfluen 3 PCR Nasal Parainfluen 4 PCR Nasal RSV (PCR) Nasal Screen MRSA (PCR) (NEGATIVE) Nasal B.pertussis DNA PCR Nasal C.pneumoniae (PCR) Wilfred Human Metapneumo PCR Nasal M.pneumoniae (PCR) Nasal SARS-CoV-2 (PCR) 10/27/22 10/27/22 10/27/22 Range/Units 05:35 00:05 00:05 WBC 12.5 H (4.8-10.8) x10^3/uL RBC 3.96 L (4.20-5.40) 10^6/uL Hgb 9.9 L (12.0-16.0) g/dL Hct 31.2 L (37.0-47.0) % MCV 78.8 L (81.0-99.0) fL MCH 25.0 L (27.0-31.0) pg MCHC 31.7 L (32.0-36.0) g/dL RDW 15.5 H (12.0-15.0) % Plt Count 236 (130-450) 10^3/uL MPV 9.9 (7.9-10.8) fL Neut # (Auto) 11.1 H (1.5-6.6) 10^3/uL Lymph # (Auto) 0.8 L (1.5-3.5) 10^3/uL [place] # (Auto) 0.4 (0.0-1.0) 10^3/uL Eos # (Auto) 0.0 (0.0-0.7) 10^3/uL Baso # (Auto) 0.0 (0.0-0.1) 10^3/uL Absolute Nucleated RBC 0.00 x10^3/uL Nucleated RBC % 0.0 /100WBC Bld Gas Analysis Time Sample Site ABG pH (7.35-7.45) ABG pCO2 (34-45) mmHg ABG pO2 (80-100) mmHg ABG HCO3 (22.0-26.0) mmol/L ABG Total CO2 (21.0-29.0) MMOL/L ABG O2 Saturation (94-98) % ABG Base Excess (-2.0-3.0) mmol/L Hen[place] Test VBG pH 7.306 L (7.31-7.41) VBG pCO2 (41-51) mmHg VBG pO2 (25-47) mmHg VBG HCO3 (23-28) mmol/L VBG Total CO2 (24-29) mmol/L VBG O2 Saturation (60-80) % VBG Base Excess (-2 - +2) mmol/L Ionized Calcium 1.10 L (1.15-1.33) mmol/L Respiration Rate b/min O2 Delivery Device Vent Mode FiO2 Tidal Volume mL PEEP cmH2O Sodium (135-145) mmol/L Potassium 3.3 L (3.5-5.0) mmol/L Chloride (101-111) mmol/L Carbon Dioxide (21-32) mmol/L Anion Gap (6-13) BUN (6-20) mg/dL Creatinine (0.4-1.0) mg/dL Estimated GFR (MDRD) (>89) Glucose (70-100) mg/dL Calcium (8.5-10.3) mg/dL Phosphorus 6.6 H (2.5-4.6) mg/dL Magnesium 2.0 (1.7-2.8) mg/dL Ammonia (7-35) umol/L Nasal Adenovirus (PCR) Nasal B. parapertussis DNA (PCR) Nasal Coronavir 229E PCR Nasal Coronavir HKU1 PCR Nasal Coronavir NL63 PCR Nasal Coronavir OC43 PCR Nasal Enterovir/Rhinovir PCR Nasal Influenza B PCR Nasal Influenza A PCR Nasal Parainfluen 1 PCR Nasal Parainfluen 2 PCR Nasal Parainfluen 3 PCR Nasal Parainfluen 4 PCR Nasal RSV (PCR) Nasal Screen MRSA (PCR) (NEGATIVE) Nasal B.pertussis DNA PCR Nasal C.pneumoniae (PCR) Wilfred Human Metapneumo PCR Nasal M.pneumoniae (PCR) Nasal SARS-CoV-2 (PCR) 10/26/22 10/26/22 10/26/22 Range/Units 20:30 17:13 16:30 WBC (4.8-10.8) x10^3/uL RBC (4.20-5.40) 10^6/uL Hgb (12.0-16.0) g/dL Hct (37.0-47.0) % MCV (81.0-99.0) fL MCH (27.0-31.0) pg MCHC (32.0-36.0) g/dL RDW (12.0-15.0) % Plt Count (130-450) 10^3/uL MPV (7.9-10.8) fL Neut # (Auto) (1.5-6.6) 10^3/uL Lymph # (Auto) (1.5-3.5) 10^3/uL [place] # (Auto) (0.0-1.0) 10^3/uL Eos # (Auto) (0.0-0.7) 10^3/uL Baso # (Auto) (0.0-0.1) 10^3/uL Absolute Nucleated RBC x10^3/uL Nucleated RBC % /100WBC Bld Gas Analysis Time 1645 Sample Site LEFT RADIAL ABG pH 7.36 (7.35-7.45) ABG pCO2 34 (34-45) mmHg ABG pO2 146 H (80-100) mmHg ABG HCO3 19.4 L (22.0-26.0) mmol/L ABG Total CO2 20.0 L (21.0-29.0) MMOL/L ABG O2 Saturation 99 H (94-98) % ABG Base Excess -6.0 L (-2.0-3.0) mmol/L [place] Test POSITIVE VBG pH (7.31-7.41) VBG pCO2 (41-51) mmHg VBG pO2 (25-47) mmHg VBG HCO3 (23-28) mmol/L VBG Total CO2 (24-29) mmol/L VBG O2 Saturation (60-80) % VBG Base Excess (-2 - +2) mmol/L Ionized Calcium (1.15-1.33) mmol/L Respiration Rate b/min O2 Delivery Device VENTILATOR Vent Mode SIMV FiO2 50.00 Tidal Volume 520 mL PEEP 5 cmH2O Sodium (135-145) mmol/L Potassium (3.5-5.0) mmol/L Chloride (101-111) mmol/L Carbon Dioxide (21-32) mmol/L Anion Gap (6-13) BUN (6-20) mg/dL Creatinine (0.4-1.0) mg/dL Estimated GFR (MDRD) (>89) Glucose (70-100) mg/dL Calcium (8.5-10.3) mg/dL Phosphorus (2.5-4.6) mg/dL Magnesium (1.7-2.8) mg/dL Ammonia 29.9 (7-35) umol/L Nasal Adenovirus (PCR) Nasal B. parapertussis DNA (PCR) Nasal Coronavir 229E PCR Nasal Coronavir HKU1 PCR Nasal Coronavir NL63 PCR Nasal Coronavir OC43 PCR Nasal Enterovir/Rhinovir PCR Nasal Influenza B PCR Nasal Influenza A PCR Nasal Parainfluen 1 PCR Nasal Parainfluen 2 PCR Nasal Parainfluen 3 PCR Nasal Parainfluen 4 PCR Nasal RSV (PCR) Nasal Screen MRSA (PCR) NEGATIVE (NEGATIVE) Nasal B.pertussis DNA PCR Nasal C.pneumoniae (PCR) Wilfred Human Metapneumo PCR Nasal M.pneumoniae (PCR) Nasal SARS-CoV-2 (PCR) 10/26/22 10/26/22 10/26/22 Range/Units 15:34 15:34 13:00 WBC (4.8-10.8) x10^3/uL RBC (4.20-5.40) 10^6/uL Hgb (12.0-16.0) g/dL Hct (37.0-47.0) % MCV (81.0-99.0) fL MCH (27.0-31.0) pg MCHC (32.0-36.0) g/dL RDW (12.0-15.0) % Plt Count (130-450) 10^3/uL MPV (7.9-10.8) fL Neut # (Auto) (1.5-6.6) 10^3/uL Lymph # (Auto) (1.5-3.5) 10^3/uL [place] # (Auto) (0.0-1.0) 10^3/uL Eos # (Auto) (0.0-0.7) 10^3/uL Baso # (Auto) (0.0-0.1) 10^3/uL Absolute Nucleated RBC x10^3/uL Nucleated RBC % /100WBC Bld Gas Analysis Time Sample Site ABG pH (7.35-7.45) ABG pCO2 (34-45) mmHg ABG pO2 (80-100) mmHg ABG HCO3 (22.0-26.0) mmol/L ABG Total CO2 (21.0-29.0) MMOL/L ABG O2 Saturation (94-98) % ABG Base Excess (-2.0-3.0) mmol/L [place] Test VBG pH 7.232 L (7.31-7.41) VBG pCO2 52.2 H (41-51) mmHg VBG pO2 59.4 H (25-47) mmHg VBG HCO3 21.5 L (23-28) mmol/L VBG Total CO2 23.1 L (24-29) mmol/L VBG O2 Saturation 90.2 H (60-80) % VBG Base Excess -6.3 L (-2 - +2) mmol/L Ionized Calcium (1.15-1.33) mmol/L Respiration Rate b/min O2 Delivery Device Vent Mode FiO2 Tidal Volume mL PEEP cmH2O Sodium 140 (135-145) mmol/L Potassium 2.9 L (3.5-5.0) mmol/L Chloride 106 (101-111) mmol/L Carbon Dioxide 21 (21-32) mmol/L Anion Gap 13.0 (6-13) BUN 42 H (6-20) mg/dL Creatinine 1.9 H (0.4-1.0) mg/dL Estimated GFR (MDRD) 27 L (>89) Glucose 141 H (70-100) mg/dL Calcium 7.6 L (8.5-10.3) mg/dL Phosphorus 4.5 (2.5-4.6) mg/dL Magnesium 1.6 L (1.7-2.8) mg/dL Ammonia (7-35) umol/L Nasal Adenovirus (PCR) NOT DETECTED Nasal B. parapertussis DNA (PCR) NOT DETECTED Nasal Coronavir 229E PCR NOT DETECTED Nasal Coronavir HKU1 PCR NOT DETECTED Nasal Coronavir NL63 PCR NOT DETECTED Nasal Coronavir OC43 PCR NOT DETECTED Nasal Enterovir/Rhinovir PCR NOT DETECTED Nasal Influenza B PCR NOT DETECTED Nasal Influenza A PCR NOT DETECTED Nasal Parainfluen 1 PCR NOT DETECTED Nasal Parainfluen 2 PCR NOT DETECTED Nasal Parainfluen 3 PCR NOT DETECTED Nasal Parainfluen 4 PCR NOT DETECTED Nasal RSV (PCR) NOT DETECTED Nasal Screen MRSA (PCR) (NEGATIVE) Nasal B.pertussis DNA PCR NOT DETECTED Nasal C.pneumoniae (PCR) NOT DETECTED Wilfred Human Metapneumo PCR NOT DETECTED Nasal M.pneumoniae (PCR) NOT DETECTED Nasal SARS-CoV-2 (PCR) NOT DETECTED ABX Reporting Has patient been on IV antibiotics over the past 48 hours?: No Assessment/Plan - Problem List (1) Respiratory arrest Impression: This unfortunate female has had a gradually progressive illness, most likely terminal. Although she was in the midst of trying to figure out and was possibly considering treatment for this illness, I think the natural progression of disease snuck up on her faster than she realized. By description she was obtunded, hypothermic, hypoglycemic and was guppy breathing with agonal respiration at the scene. She may have already been dying and we have stepped in the way of that with our resuscitative efforts. In speaking to her next of kin on the night of admission, daughter feels that what was happening. She started CPR only because her mom wanted to be a full code. But in putting together the whole picture, she and her mom had discussed that mom would not want to be this way. Mom wanted CPR and resuscitation because she felt like she still has some quality of life left, and that she could be in this intermediate state of disease status a bit longer. Clearly, this was not the case with today's arrest. On the night of admission daughter wanted us to continue supportive care. She wanted family to be able to say goodbye. She has her brother in [place], and her son in [place]. However today [place] is closed. Family is not able to completely be together. She remains hypotensive, but not needing Levophed. Plan: now that awake try to see if we can start to wean off of vent. On her own she is generating between 380 cc and up to 580 cc of tidal volume. Peak pressures are in the mid 20s. She is on FiO2 of 40% and oxygenating well. I have asked the nurses to hold sedation tomorrow morning, and respiratory therapy to work with her so that I can see if I can extubate early in the morning. (2) Obtundation Conclusion/Plan: A gradually worsening confusion and obtundation is described over the last couple of weeks. Patient was spending more more time in bed. Prior to this, the confusion was attributed to "dementia". Daughter does not remember a CT or an MRI being done to evaluate the dementia. There is also the question of the bottle of Haldol that was found at the bedside. Could this patient have done an overdose of Haldol. Other factors to cause obtundation would be electrolyte derangement, postobstructive pneumonia, tumor necrosis, and liver disease (she has a history of hepatitis). Ammonia level is normal. White cell count is coming down without antibiotics. She has had no arrhythmias This morning she seems more awake. But not responding to our requests. Possible anoxia or just slow recovery in face of arrest or the effects of her brain tumor. Plan: continue decadron for mets. await family decisions. (3) Lung cancer metastatic to brain Conclusion/Plan: Patient is a smoker. Most likely related. At this time no treatment being offered for the cancer. She most likely has a postobstructive picture with complete collapse of that right lower lung causing some WBC elevation but that has improved. Urinalysis is negative for infection. Brain shows evidence of possible tumor but no abscess. CT of abdomen is also not indicating infection. No antibiotics at this time. Continue decadron. (4) TAQUERIA in face of hypotension in the field. I suspect low flow state causing an abrupt rise in creat. since CT of abd w/o hydro (obstruction) and no renal toxic drugs were being taken. plan is to continue giving IVF. I thought of tube feeds if the family wanted more done, but they have not weighed in yet so I am asking Nutrition services to wait on starting feeds until tomorrow.
[2022-10-27] MEDS: fentaNYL 2,500 MCG/250 ML 2,500 MCG/250 ML BAG IV SCH (20:21)
[2022-10-27] MEDS: SODIUM CHLORIDE 0.9% 500 ML IV PRN (20:22)
[2022-10-28] MEDS ORDERED: POTASSIUM CHLORIDE 20 MEQ TABLET PO ONE
[2022-10-28] MEDS ORDERED: CALCIUM GLUCONATE IN NS 0.9% 2,000 MG/100 ML BAG IV ONE
[2022-10-28] MEDS: DEXAMETHASONE 4 MG/ML VIAL IVP SCH ×2 (01:23→08:25)
[2022-10-28] MEDS: PROPOFOL 1000 MG/100 ML 1,000 MG/100 ML BOTTLE IV SCH (03:19)
[2022-10-28] MEDS: MORPHINE 2 MG/ML CARPUJECT IVP PRN ×3 (03:28→16:55)
[2022-10-28 04:57] LABS: BASOPHILS % (AUTO) 0.1 %; HCT - HEMATOCRIT 30.5 % (37.0-47.0); HGB - HEMOGLOBIN 9.6 g/dL (12.0-16.0); LYMPHOCYTES # (AUTO) 0.7 10^3/uL (1.5-3.5); LYMPHOCYTES % (AUTO) 6.1 %; MEAN CORPUSCULAR HEMOGLOBIN 24.9 pg (27.0-31.0); MEAN CORPUSCULAR HGB CONC 31.5 g/dL (32.0-36.0); MEAN CORPUSCULAR VOLUME 79.2 fL (81.0-99.0); MEAN PLATELET VOLUME 10.5 fL (7.9-10.8); MONOCYTES # (AUTO) 0.6 10^3/uL (0.0-1.0); MONOCYTES % (AUTO) 4.9 %; NEUTROPHILS # (AUTO) 10.5 10^3/uL (1.5-6.6); NEUTROPHILS % (AUTO) 88.3 %; PLT - PLATELET COUNT 237 10^3/uL (130-450); RED BLOOD COUNT 3.85 10^6/uL (4.20-5.40); RED CELL DISTRIBUTION WIDTH 16.1 % (12.0-15.0); WHITE BLOOD COUNT 11.9 x10^3/uL (4.8-10.8)
[2022-10-28] MEDS: fentaNYL 2,500 MCG/250 ML 2,500 MCG/250 ML BAG IV SCH (05:06)
[2022-10-28 05:08] LABS: CALCIUM, IONIZED 1.09 mmol/L (1.15-1.33); VBG PH 7.289 (7.31-7.41)
[2022-10-28 05:17] LABS: CALCIUM 7.8 mg/dL (8.5-10.3); CREATININE 2.1 mg/dL (0.4-1.0); POTASSIUM 4.4 mmol/L (3.5-5.0)
[2022-10-28 05:42] LABS: ABG OXYGEN SATURATION 98 % (94-98); ABG PCO2 29 mmHg (34-45); ABG PH 7.38 (7.35-7.45); ABG PO2 136 mmHg (80-100); ABG TCO2 17.9 MMOL/L (21.0-29.0)
[2022-10-28 05:44] LABS: ABG MODE OF VENTILATION SIMV; ABG RESPIRATORY RATE 18 b/min
[2022-10-28] MEDS: PANTOPRAZOLE 40 MG VIAL IVP SCH (06:05)
--- NOTE | 2022-10-28 07:35 | PROVIDER PROGRESS NOTE ---
Subjective - Prog Note Date Prog Note Date: 10/28/22 Prog Note Time: 07:33 - Subjective Subjective: From a respiratory perspective she has been doing well. Her peak pressures are in the mid 20s. So is very easy to push air into her. ABGs consistently show good oxygenation with a mild metabolic acidosis. Self generated tidal volumes range between 380 to the mid 500s. Were unable to get an F because she cannot cooperate. I would like to extubate her but family has not been able to see her. I do think to from a respiratory perspective she is stable enough that extubation will not result in . In thinking about the scenario of her presentation where she has been getting gradually sleepier and sleepier, and was found obtunded by family, I wonder if she had a seizure and not really a respiratory arrest. There is also still the question of did she take Haldol or not. While here her QT has been normal. There has been no arrhythmia. She has woken up. She is requiring 2 drips to keep her sedated. But her awareness is not full. It consist of eyes open, trying to sit up, and she does track you with her eyes when she sees you but there is no response. She is not able to follow commands. Slack emotional response Current Medications - Current Medications Current Medications: Active Medications Acetaminophen (Acetaminophen 325 Mg Tablet) 650 mg PO Q4HR PRN PRN Reason: Pain 1 to 4, or Fever Albuterol (Albuterol Neb 2.5 Mg/3 Ml) 2.5 mg INH Q4HR PRN PRN Reason: Wheezing Dexamethasone (Dexamethasone 4 Mg/Ml Vial) 4 mg IVP Q6H OMARI Last Admin: 10/28/22 01:23 Dose: 4 mg Enoxaparin Sodium (Enoxaparin 30 Mg/0.3 Ml Syringe) 30 mg SUBQ DAILY OMARI Sodium Chloride (Normal Saline 0.9%) 500 mls @ 20 mls/hr IV Q24H PRN PRN Reason: TKO RATE Last Infusion: 10/28/22 06:39 Dose: 20 mls/hr Propofol (Diprivan) 1,000 mg in 100 mls @ 4.35 mls/hr IV .Q23H OMARI; Protocol Last Titration: 10/28/22 06:38 Dose: 40 mcg/kg/min, 17.4 mls/hr Fentanyl (Fentanyl) 2,500 mcg in 250 mls @ 7.25 mls/hr IV .[id number] [facility]; Protocol Last Titration: 10/28/22 06:38 Dose: 2 mcg/kg/hr, 14.5 mls/hr Morphine Sulfate (Morphine 2 Mg/Ml Carpuject) 2 mg IVP Q2HR PRN PRN Reason: Pain 8 to 10 Last Admin: 10/28/22 03:28 Dose: 2 mg Ondansetron HCl (Ondansetron Odt 4 Mg Tablet) 4 mg TL Q6HR PRN PRN Reason: Nausea / Vomiting Ondansetron HCl (Ondansetron 4 Mg/2 Ml Vial) 4 mg IVP Q6HR PRN PRN Reason: Nausea / Vomiting Pantoprazole Sodium (Pantoprazole 40 Mg Vial) 40 mg IVP QDAC [facility] Last Admin: 10/28/22 06:05 Dose: 40 mg Sodium Chloride (Sodium Chloride Flush 0.9% 10 Ml Syringe) 20 ml IVP PRN PRN PRN Reason: After Blood Draw Last Admin: 10/27/22 05:36 Dose: 20 ml Sodium Chloride (Sodium Chloride Flush 0.9% 10 Ml Syringe) 10 ml IVP 0100,0900,1700 [facility] Last Admin: 10/27/22 20:21 Dose: 10 ml Sodium Chloride (Sodium Chloride Flush 0.9% 10 Ml Syringe) 10 ml IVP PRN PRN PRN Reason: Per Line Care protocol Albuterol Sulf [Ventolin Hfa Inhaler] 1 - 2 puffs INH Q4HR PRN 10/26/22 Duloxetine HCl [Cymbalta] 60 mg PO DAILY 10/26/22 Metoprolol Succinate [Toprol Xl] 50 mg PO DAILY 10/26/22 Omeprazole Magnesium 20 mg PO DAILY 10/26/22 Promethazine [Phenergan] 25 mg PO Q6H PRN 10/26/22 Trazodone HCl 300 mg PO HS 10/26/22 clonazePAM [Clonazepam] 1 mg PO QPM PRN 10/26/22 estradioL [Estrace] 1 mg PO DAILY 10/26/22 methocarbamoL [Methocarbamol] 750 mg PO TID 10/26/22 oxyCODONE [Roxicodone] 5 mg PO Q8HR PRN 10/26/22 Objective - Vital Signs/Intake & Output Reviewed Vital Signs: Yes Vital Signs: Vital Signs x48h Temp Pulse Pulse Resp BP Pulse Ox 10/28/22 07:10 18 97 10/28/22 07:00 60 18 169/71 H 97 10/28/22 06:30 18 95 10/28/22 06:00 48 L 18 168/78 H 95 10/28/22 05:35 72 10/28/22 05:30 18 96 10/28/22 05:00 56 L 18 161/92 H 96 10/28/22 04:30 37.5 C 18 97 10/28/22 04:00 37.5 C 60 18 156/102 H 97 10/28/22 03:30 43 L 18 97 10/28/22 03:00 50 L 18 164/72 H 97 10/28/22 02:30 18 95 10/28/22 02:00 47 L 18 159/78 H 95 10/28/22 01:25 46 L 10/28/22 01:00 45 L 18 156/80 H 98 10/28/22 00:30 37.5 C 18 97 10/28/22 00:00 37.5 C 47 L 18 151/72 H 97 10/27/22 23:50 52 L Intake & Output: Intake & Output 10/25/22 10/26/22 10/27/22 10/28/22 23:59 23:59 23:59 23:59 Intake Total 2336.629 3853.171 651.090 Output Total 146 2691 760 Balance 2190.629 1162.171 -108.910 - Objective General Appearance: positive: Mild distress (Eyes open, nodding her head now yes no. Much more appropriate. When I ask about the tube, she definitely wants it out. Following commands.), Lethargic (Although she is definitely more alert today than she has been. She is able to follow commands. Still has that glazed look) Eyes Bilateral: positive: PERRL, EOMI ENT: positive: No signs of dehydration Neck: positive: No JVD. negative: Stiff neck Respiratory: positive: No respiratory distress Cardiovascular: positive: Regular rate & rhythm Abdomen: positive: Non-tender, No organomegaly, Nml bowel sounds Skin: positive: Warm, Dry Extremities: positive: Full ROM, No pedal edema Neurologic/Psychiatric: positive: CN's nml (2-12), Motor nml (Moving all 4 extremities. On her own trying to sit up even no upper extremity restraints in place.) - Lab Results Fish Bones: 10/28/22 04:20 10/28/22 04:20 Other Labs: Lab Results x24hrs 10/28/22 10/28/22 10/28/22 Range/Units 05:30 04:20 04:20 WBC (4.8-10.8) x10^3/uL RBC (4.20-5.40) 10^6/uL Hgb (12.0-16.0) g/dL Hct (37.0-47.0) % MCV (81.0-99.0) fL MCH (27.0-31.0) pg MCHC (32.0-36.0) g/dL RDW (12.0-15.0) % Plt Count (130-450) 10^3/uL MPV (7.9-10.8) fL Neut # (Auto) (1.5-6.6) 10^3/uL Lymph # (Auto) (1.5-3.5) 10^3/uL Henry # (Auto) (0.0-1.0) 10^3/uL Eos # (Auto) (0.0-0.7) 10^3/uL Baso # (Auto) (0.0-0.1) 10^3/uL Absolute Nucleated RBC x10^3/uL Nucleated RBC % /100WBC Bld Gas Analysis Time 0540 Sample Site RIGHT BRACHIAL ABG pH 7.38 (7.35-7.45) ABG pCO2 29 L (34-45) mmHg ABG pO2 136 H (80-100) mmHg ABG HCO3 17.0 L (22.0-26.0) mmol/L ABG Total CO2 17.9 L (21.0-29.0) MMOL/L ABG O2 Saturation 98 (94-98) % ABG Base Excess -7.0 L (-2.0-3.0) mmol/L Henok Test NOT APPLICABLE VBG pH (7.31-7.41) Ionized Calcium (1.15-1.33) mmol/L Respiration Rate 18 b/min O2 Delivery Device VENTILATOR Vent Mode SIMV FiO2 30.00 Tidal Volume 450 mL PEEP 5 cmH2O Pressure Support Vent 10 cmH2O Sodium (135-145) mmol/L Potassium (3.5-5.0) mmol/L Chloride (101-111) mmol/L Carbon Dioxide (21-32) mmol/L Anion Gap (6-13) BUN (6-20) mg/dL Creatinine (0.4-1.0) mg/dL Estimated GFR (MDRD) (>89) Glucose (70-100) mg/dL Calcium (8.5-10.3) mg/dL Phosphorus 4.7 H (2.5-4.6) mg/dL Magnesium 2.4 (1.7-2.8) mg/dL 10/28/22 10/28/22 10/28/22 Range/Units 04:20 04:20 04:20 WBC 11.9 H (4.8-10.8) x10^3/uL RBC 3.85 L (4.20-5.40) 10^6/uL Hgb 9.6 L (12.0-16.0) g/dL Hct 30.5 L (37.0-47.0) % MCV 79.2 L (81.0-99.0) fL MCH 24.9 L (27.0-31.0) pg MCHC 31.5 L (32.0-36.0) g/dL RDW 16.1 H (12.0-15.0) % Plt Count 237 (130-450) 10^3/uL MPV 10.5 (7.9-10.8) fL Neut # (Auto) 10.5 H (1.5-6.6) 10^3/uL Lymph # (Auto) 0.7 L (1.5-3.5) 10^3/uL Henry # (Auto) 0.6 (0.0-1.0) 10^3/uL Eos # (Auto) 0.0 (0.0-0.7) 10^3/uL Baso # (Auto) 0.0 (0.0-0.1) 10^3/uL Absolute Nucleated RBC 0.00 x10^3/uL Nucleated RBC % 0.0 /100WBC Bld Gas Analysis Time Sample Site ABG pH (7.35-7.45) ABG pCO2 (34-45) mmHg ABG pO2 (80-100) mmHg ABG HCO3 (22.0-26.0) mmol/L ABG Total CO2 (21.0-29.0) MMOL/L ABG O2 Saturation (94-98) % ABG Base Excess (-2.0-3.0) mmol/L Henok Test VBG pH 7.289 L (7.31-7.41) Ionized Calcium 1.09 L (1.15-1.33) mmol/L Respiration Rate b/min O2 Delivery Device Vent Mode FiO2 Tidal Volume mL PEEP cmH2O Pressure Support Vent cmH2O Sodium 140 (135-145) mmol/L Potassium 4.4 (3.5-5.0) mmol/L Chloride 111 (101-111) mmol/L Carbon Dioxide 18 L (21-32) mmol/L Anion Gap 11.0 (6-13) BUN 40 H (6-20) mg/dL Creatinine 2.1 H (0.4-1.0) mg/dL Estimated GFR (MDRD) 24 L (>89) Glucose 135 H (70-100) mg/dL Calcium 7.8 L (8.5-10.3) mg/dL Phosphorus (2.5-4.6) mg/dL Magnesium (1.7-2.8) mg/dL Assessment/Plan - Problem List (1) Respiratory arrest Impression: This unfortunate female has had a gradually progressive illness, most likely terminal. Although she was in the midst of trying to figure out and was possibly considering treatment for this illness, I think the natural progression of disease snuck up on her faster than she realized. By description she was obtunded, hypothermic, hypoglycemic and was guppy breathing with agonal respiration at the scene. She may have already been dying and we have stepped in the way of that with our resuscitative efforts. In speaking to her next of kin on the night of admission, daughter feels that what was happening. She started CPR only because her mom wanted to be a full code. But in putting together the whole picture, she and her mom had discussed that mom would not want to be this way. Mom wanted CPR and resuscitation because she felt like she still has some quality of life left, and that she cou ld be in this intermediate state of disease status a bit longer. Clearly, this was not the case with today's arrest. On the night of admission daughter wanted us to continue supportive care. She wanted family to be able to say goodbye. She has her brother in [place], and her son in [place]. However [place] is closed and family is not able to completely be together. She was hypotensive enough to require Levophed on admission. By yesterday morning on October 27 Levophed was taken off and she had soft blood pressures during the day. As the day progressed and over the night she is now mildly hypertensive in the 160s. Plan: From a weaning perspective I think I would like to extubate her today.. On her own she is generating between 380 cc and up to 580 cc of tidal volume. Peak pressures are in the mid 20s. She is on FiO2 of 30% and oxygenating well. I have asked for sedation to be held today, so I can extubate her, but I did want to speak to her daughter to make sure family was on board with this. I do not think this woman will after extubation but on the remote chance that there is an adverse event, I do not want to reintubate her. I have left a message with Puma Peter at [phone] twice for her to call me on the hospitalist phone number.The patient herself is not becoming increasingly agitated. I have stopped her sedation in anticipation of ext ubation. The patient herself is asking I please extubate her. Order written (2) Obtundation Conclusion/Plan: A gradually worsening confusion and obtundation is described over the last couple of weeks. Patient was spending more more time in bed. Prior to this, the confusion was attributed to "dementia". Daughter does not remember a CT or an MRI being done to evaluate the dementia. There is also the question of the bottle of Haldol that was found at the bedside. Could this patient have done an overdose of Haldol. Other factors to cause obtundation would be electrolyte derangement, postobstructive pneumonia, tumor necrosis, and liver disease (she has a history of hepatitis). Ammonia level is normal. White cell count is coming down without antibiotics. She has had no arrhythmias Since the morning of October 27, on propofol and fentanyl, eyes are open, and she is moving, trying to pull tubes and IV. But not responding to our requests. Possible anoxia or just slow recovery in face of arrest or the effects of her brain tumor. Plan: continue decadron for mets. await family decisions. (3) Lung cancer metastatic to brain Conclusion/Plan: Patient is a smoker. Most likely related. At this time no treatment being offered for the cancer. She most likely has a postobstructive picture with complete collapse of that right lower lung causing some WBC elevation but that has improved. Urinalysis is negative for infection. Brain shows evidence of possible tumor but no abscess. CT of abdomen is also not indicating infection. No antibiotics at this time. Continue decadron. (4) TAQUERIA in face of hypotension in the field. Creatinine on admission was 1.7. She was 2.2 yesterday, and 2.1 today. I suspect low flow state causing an abrupt rise in creat. since CT of abd w/o hydro (obstruction) and no renal toxic drugs were being taken. plan is to continue giving IVF. I thought of tube feeds if the family wanted more done, but they have not weighed in yet so I am asking Nutrition services to wait on starting feeds until Today depending on their decision
[2022-10-28] MEDS: SODIUM CHLORIDE FLUSH 0.9% 10 ML SYRINGE IVP SCH ×2 (08:25→17:20)
[2022-10-28] MEDS: ENOXAPARIN 30 MG/0.3 ML SYRINGE SUBQ SCH (08:25)
[2022-10-28] MEDS: PANTOPRAZOLE 40 MG TABLET PO SCH (10:53)
[2022-10-28] MEDS: ONDANSETRON 4 MG/2 ML VIAL IVP PRN ×2 (14:02→20:58)
[2022-10-28] MEDS ORDERED: HALOPERIDOL 5 MG/ML VIAL IVP STA (14:12)
[2022-10-28] MEDS: dexAMETHasone 4 MG TABLET PO SCH ×3 (14:52→20:50)
[2022-10-28] MEDS ORDERED: HYDROmorphone 1 MG/ML CARPUJECT IVP PRN (18:08)
[2022-10-28] MEDS: HYDROmorphone 1 MG/ML CARPUJECT IVP PRN ×2 (18:26→20:50)
[2022-10-29] MEDS: SODIUM CHLORIDE FLUSH 0.9% 10 ML SYRINGE IVP SCH ×3 (00:06→17:22)
[2022-10-29] MEDS: HYDROmorphone 1 MG/ML CARPUJECT IVP PRN ×8 (00:06→22:32)
[2022-10-29] MEDS: SODIUM CHLORIDE FLUSH 0.9% 10 ML SYRINGE IVP PRN ×4 (02:01→22:33)
[2022-10-29 05:42] LABS: BASOPHILS % (AUTO) 0.1 %; HCT - HEMATOCRIT 36.1 % (37.0-47.0); HGB - HEMOGLOBIN 11.2 g/dL (12.0-16.0); LYMPHOCYTES # (AUTO) 0.6 10^3/uL (1.5-3.5); LYMPHOCYTES % (AUTO) 2.8 %; MEAN CORPUSCULAR HEMOGLOBIN 24.4 pg (27.0-31.0); MEAN CORPUSCULAR VOLUME 78.6 fL (81.0-99.0); MEAN PLATELET VOLUME 10.3 fL (7.9-10.8); MONOCYTES # (AUTO) 0.8 10^3/uL (0.0-1.0); MONOCYTES % (AUTO) 4.1 %; NEUTROPHILS # (AUTO) 18.1 10^3/uL (1.5-6.6); NEUTROPHILS % (AUTO) 91.6 %; PLT - PLATELET COUNT 281 10^3/uL (130-450); RED BLOOD COUNT 4.59 10^6/uL (4.20-5.40); RED CELL DISTRIBUTION WIDTH 15.9 % (12.0-15.0); WHITE BLOOD COUNT 19.7 x10^3/uL (4.8-10.8)
[2022-10-29 05:54] LABS: CALCIUM 8.5 mg/dL (8.5-10.3); CREATININE 1.4 mg/dL (0.4-1.0); POTASSIUM 3.8 mmol/L (3.5-5.0)
[2022-10-29] MEDS: PANTOPRAZOLE 40 MG TABLET PO SCH (06:28)
[2022-10-29 06:43] LABS: VBG PH 7.369 (7.31-7.41)
[2022-10-29 06:44] LABS: CALCIUM, IONIZED 1.1 mmol/L (1.15-1.33)
[2022-10-29] MEDS: dexAMETHasone 4 MG TABLET PO SCH ×4 (08:10→20:48)
[2022-10-29] MEDS: ENOXAPARIN 30 MG/0.3 ML SYRINGE SUBQ SCH (08:10)
[2022-10-29] MEDS: METOPROLOL SUCCINATE 50 MG TABLET PO SCH (09:26)
[2022-10-29] MEDS: DULoxetine 30 MG CAPSULE PO SCH (09:26)
[2022-10-29] MEDS: oxyCODONE 5 MG TABLET PO PRN ×2 (10:04→19:36)
--- NOTE | 2022-10-29 11:32 | PROVIDER PROGRESS NOTE ---
Assessment/Plan - Problem List (1) Pleuritic chest pain Assessment/Plan: There is a history of discomfort in the right and center of chest. Today she told her nurse the pain is worse in that same area. The pain is also worsened by taking a deep breath. This is likely pain from her lung tumor. The CT scan showed that the tumor is causing an obstruction of the right lower lobe Plan: Will obtain chest x-ray today Continue with narcotic pain meds, and will add a topical lidocaine patch If the tumor seems to be invading the rib cage, she will need aggressive IV narcotic treatment, and may be a candidate for hospice GIP status. (2) Lung cancer metastatic to brain Conclusion/Plan: Patient is a smoker, and the lung tumor is likely related to that. She declined cancer treatment in the past, per Hx. At this time, no treatment being offered for the cancer. She most likely has a postobstructive picture by CT chest, since complete collapse of that right lower lung was seen. Brain shows evidence of possible tumor but no abscess. Plan: We are empirically continuing Decadron Pain meds also ordered (3) TAQUERIA i Improving. It was probably due to hypotension at the scene. I suspect low flow state causing an abrupt rise in creat, since CT of abd was w/o hydronephrosis (no obstruction) and no renal toxic drugs were being taken. Creatinine on admission was 1.7. then 2.2 >>2.1>> 1.4 today. Plan: Continue giving IVF Avoid nephrotoxins (4) HTN Since extubation she has had blood pressure as high as 1 90-200 systolic. Her home med list shows she is on metoprolol Plan: Will resume metoprolol today (5) Obtundation Conclusion/Plan: A gradually worsening confusion and obtundation was described over the last couple of weeks. Patient was spending more more time in bed. Prior to this, the confusion was attributed to "dementia". Daughter does not remember a CT or an MRI being done to evaluate the dementia. There is also the question of the bottle of Haldol that was found at the bedside. Could this patient have done an overdose of Haldol, at presentation. Other factors to cause obtundation would be electrolyte derangement, postobstructive pneumonia, tumor necrosis, and liver disease (she has a history of hepatitis). Ammonia level is normal. White cell count is coming down without antibiotics. She has had no arrhythmias She was extubated and is out of ICU Plan: continue decadron for mets. Await family decisions. (6) Headache Improved. This is likely from the brain met. She was mostly complaining of a headache, after extubation. Morphine IV dosing was not touching it. Yesterday Dilaudid was started. Today oxycodone orally was given so she can transition to an oral narcotic and it has worked. Plan: Continue Oxycodone for pain 4-8, or Dilaudid if pain >8. (7) Respiratory arrest Impression: This is how she presented This unfortunate female has had a gradually progressive illness, most likely terminal. Although she was in the midst of trying to figure out and was possibly considering treatment for this illness, I think the natural progression of disease snuck up on her faster than she realized. By description she was obtunded, hypothermic, hypoglycemic and was guppy breathing with agonal respiration at the scene. She may have already been dying and we have stepped i n the way of that with our resuscitative efforts. In speaking to her next of kin on the night of admission, daughter feels that what was happening. She started CPR only because her mom wanted to be a full code. But in putting together the whole picture, she and her mom had discussed that mom would not want to be this way. Mom wanted CPR and resuscitation because she felt like she still has some quality of life left, and that she could be in this intermediate state of disease status a bit longer. Clearly, this was not the case with today's arrest. On the night of admission daughter wanted us to continue supportive care. She wanted family to be able to say goodbye. She has her brother in [place], and her son in [place]. However [place] is closed and family is not able to completely be together. She was hypotensive enough to require Levophed on admission. By yesterday mo rning on October 27 Levophed was taken off and she had soft blood pressures during the day. As the day progressed and over the night she is now mildly hypertensive in the 160s. She was extubated and is out of ICU. Getting suppl O2 (8) Hypotension Resolved. - Current Meds Current Meds: Current Medications Generic Name Dose Route Start Last Admin Trade Name Freq PRN Reason Stop Dose Admin Dexamethasone 4 mg 10/28/22 13:00 10/29/22 08:10 Dexamethasone 4 Mg Tablet PO 4 mg QID OMARI Administration Duloxetine HCl 60 mg 10/29/22 10:00 10/29/22 09:26 Duloxetine 30 Mg Capsule PO 60 mg DAILY OMARI Administration Enoxaparin Sodium 30 mg 10/28/22 09:00 10/29/22 08:10 Enoxaparin 30 Mg/0.3 Ml Syringe SUBQ 30 mg DAILY OMARI Administration Hydromorphone HCl 1 mg 10/28/22 18:12 10/29/22 08:10 Hydromorphone 1 Mg/Ml Carpuject IVP 1 mg Q2HR PRN Administration PAIN >8 Sodium Chloride 500 mls @ 20 mls/hr 10/26/22 20:55 10/29/22 00:00 Normal Saline 0.9% IV Infused Q24H PRN Infusion TKO RATE Metoprolol Succinate 50 mg 10/29/22 10:00 10/29/22 09:26 Metoprolol Succinate 50 Mg Tablet PO 50 mg DAILY OMARI Administration Ondansetron HCl 4 mg 10/26/22 16:17 10/28/22 20:58 Ondansetron 4 Mg/2 Ml Vial IVP 4 mg Q6HR PRN Administration Nausea / Vomiting Oxycodone HCl 5 mg 10/29/22 09:13 10/29/22 10:04 Oxycodone 5 Mg Tablet PO 5 mg Q8HR PRN Administration PAIN 5-7 Pantoprazole Sodium 40 mg 10/28/22 11:00 10/29/22 06:28 Pantoprazole 40 Mg Tablet PO 40 mg QDAC OMARI Administration Sodium Chloride 20 ml 10/26/22 20:55 10/27/22 05:36 Sodium Chloride Flush 0.9% 10 Ml Syringe IVP 20 ml PRN PRN Administration After Blood Draw Sodium Chloride 10 ml 10/27/22 01:00 10/29/22 08:11 Sodium Chloride Flush 0.9% 10 Ml Syringe IVP 10 ml 0100,0900,1700 OMARI Administration Sodium Chloride 10 ml 10/26/22 20:55 10/29/22 02:01 Sodium Chloride Flush 0.9% 10 Ml Syringe IVP 10 ml PRN PRN Administration Per Line Care protocol - Lab Result Fish Bone Diagrams: 10/29/22 05:08 10/29/22 05:08 - Additional Planning My Orders: My Active Orders 10/28/22 18:12 HYDROmorphone 1MG CARP [Dilaudid 1Mg Carp] 1 mg IVP Q2HR PRN 10/29/22 09:13 oxyCODONE [Roxicodone] 5 mg PO Q8HR PRN 10/29/22 09:17 clonazePAM [KlonoPIN] 1 mg PO QPM PRN 10/29/22 10:00 DULoxetine [Cymbalta] 60 mg PO DAILY Metoprolol Succinate [Toprol Xl] 50 mg PO DAILY 10/29/22 11:29 Chest 1 View X-Ray [XR] Stat Subjective - Subjective Patient Reports: Pain (c/o chest pain, worse than her usual, worse with a deep breath, in R and lower central chest (points to xyphoid area). speeks with slow, slurred speech (but just got Oxycodone).) Objective Vital Signs: Vital Signs - 24 hr 10/28/22 10/28/22 10/29/22 11:50 15:49 01:45 Temperature 36.8 C 36.6 C 36.8 C Heart Rate [ 84 66 91 Monitoring electrodes] Respiratory 18 16 18 Rate Blood Pressure 200/78 H 201/86 H 198/84 H [Left Brachial artery] O2 Saturation 93 97 92 If not protocol 2.5 3 : Oxygen Flow, liters/minute 10/29/22 07:59 Temperature 36.7 C Heart Rate [ 74 Monitoring electrodes] Respiratory 18 Rate Blood Pressure 178/107 H [Left Brachial artery] O2 Saturation 97 If not protocol 3 : Oxygen Flow, liters/minute Oxygen O2 Source Nasal cannula I&O (Last 24 Hrs): Intake and Output Totals x24h 10/27/22 10/28/22 10/29/22 23:59 23:59 23:59 Intake Total 3853.171 1303.366 714.333 Output Total 9203 5644 2400 Balance 1162.171 -1581.634 -0565.665 General: Alert, Oriented x3 HEENT: Mucous membr. moist/pink Neck: Supple Neuro: Alert, Non Focal, Other (Speech is slurred (after oxycodone), memory is poor.) Cardiovascular: Regular rate, No murmurs Respiratory: Rales, Rhonchi (R posterior base) Abdomen: Normal bowel sounds, No tenderness Extremities: No clubbing, No edema - Results Results: Laboratory Results WBC 19.7 x10^3/uL (4.8-10.8) H 10/29/22 05:08 RBC 4.59 10^6/uL (4.20-5.40) 10/29/22 05:08 Hgb 11.2 g/dL (12.0-16.0) L 10/29/22 05:08 Hct 36.1 % (37.0-47.0) L 10/29/22 05:08 MCV 78.6 fL (81.0-99.0) L 10/29/22 05:08 MCH 24.4 pg (27.0-31.0) L 10/29/22 05:08 MCHC 31.0 g/dL (32.0-36.0) L 10/29/22 05:08 RDW 15.9 % (12.0-15.0) H 10/29/22 05:08 Plt Count 281 10^3/uL (130-450) 10/29/22 05:08 MPV 10.3 fL (7.9-10.8) 10/29/22 05:08 Neut # (Auto) 18.1 10^3/uL (1.5-6.6) H 10/29/22 05:08 Lymph # (Auto) 0.6 10^3/uL (1.5-3.5) L 10/29/22 05:08 Darke # (Auto) 0.8 10^3/uL (0.0-1.0) 10/29/22 05:08 Eos # (Auto) 0.0 10^3/uL (0.0-0.7) 10/29/22 05:08 Baso # (Auto) 0.0 10^3/uL (0.0-0.1) 10/29/22 05:08 Absolute Nucleated RBC 0.00 x10^3/uL 10/29/22 05:08 Total Counted 100 10/26/22 12:31 Band Neuts % (Manual) 3 % (0-10) 10/26/22 12:31 Abnorm Lymph % (Manual) 0 % 10/26/22 12:31 Myelocytes % 1 % (-0) H 10/26/22 12:31 Nucleated RBC % 0.0 /100WBC 10/29/22 05:08 Neutrophils # (Manual) 29.9 10^3/uL (1.5-6.6) H 10/26/22 12:31 Lymphocytes # (Manual) 1.4 10^3/uL (1.5-3.5) L 10/26/22 12:31 Monocytes # (Manual) 2.8 10^3/uL (0.0-1.0) H 10/26/22 12:31 Eosinophils # (Manual) 0.0 10^3/uL (0-0.7) 10/26/22 12:31 Basophils # (Manual) 0.0 10^3/uL (0-0.1) 10/26/22 12:31 Differential Comment MANUAL DIFFERENTIAL 10/26/22 12:31 PT 12.7 secs (9.9-12.6) H 10/26/22 12:31 INR 1.1 (0.8-1.2) 10/26/22 12:31 Bld Gas Analysis Time 0540 10/28/22 05:30 Sample Site RIGHT BRACHIAL 10/28/22 05:30 ABG pH 7.38 (7.35-7.45) 10/28/22 05:30 ABG pCO2 29 mmHg (34-45) L 10/28/22 05:30 ABG pO2 136 mmHg (80-100) H 10/28/22 05:30 ABG HCO3 17.0 mmol/L (22.0-26.0) L 10/28/22 05:30 ABG Total CO2 17.9 MMOL/L (21.0-29.0) L 10/28/22 05:30 ABG O2 Saturation 98 % (94-98) 10/28/22 05:30 ABG Base Excess -7.0 mmol/L (-2.0-3.0) L 10/28/22 05:30 Henok Test NOT APPLICABLE 10/28/22 05:30 VBG pH 7.369 (7.31-7.41) 10/29/22 06:28 VBG pCO2 52.2 mmHg (41-51) H 10/26/22 15:34 VBG pO2 59.4 mmHg (25-47) H 10/26/22 15:34 VBG HCO3 21.5 mmol/L (23-28) L 10/26/22 15:34 VBG Total CO2 23.1 mmol/L (24-29) L 10/26/22 15:34 VBG O2 Saturation 90.2 % (60-80) H 10/26/22 15:34 VBG Base Excess -6.3 mmol/L (-2 - +2) L 10/26/22 15:34 Ionized Calcium 1.10 mmol/L (1.15-1.33) L 10/29/22 06:28 Respiration Rate 18 b/min 10/28/22 05:30 O2 Delivery Device VENTILATOR 10/28/22 05:30 Vent Mode SIMV 10/28/22 05:30 FiO2 30.00 10/28/22 05:30 Tidal Volume 450 mL 10/28/22 05:30 PEEP 5 cmH2O 10/28/22 05:30 Pressure Support Vent 10 cmH2O 10/28/22 05:30 Sodium 142 mmol/L (135-145) 10/29/22 05:08 Potassium 3.8 mmol/L (3.5-5.0) 10/29/22 05:08 Chloride 108 mmol/L (101-111) 10/29/22 05:08 Carbon Dioxide 25 mmol/L (21-32) 10/29/22 05:08 Anion Gap 9.0 (6-13) 10/29/22 05:08 BUN 29 mg/dL (6-20) H 10/29/22 05:08 Creatinine 1.4 mg/dL (0.4-1.0) H 10/29/22 05:08 Estimated GFR (MDRD) 38 (>89) L 10/29/22 05:08 Glucose 148 mg/dL (70-100) H 10/29/22 05:08 Lactic Acid 2.0 mmol/L (0.5-2.2) 10/26/22 12:31 Calcium 8.5 mg/dL (8.5-10.3) 10/29/22 05:08 Phosphorus 4.7 mg/dL (2.5-4.6) H 10/28/22 04:20 Magnesium 2.4 mg/dL (1.7-2.8) 10/28/22 04:20 Total Bilirubin 0.4 mg/dL (0.2-1.0) 10/26/22 12:31 AST 64 IU/L (10-42) H 10/26/22 12:31 ALT 19 IU/L (10-60) 10/26/22 12:31 Alkaline Phosphatase 49 IU/L (42-121) 10/26/22 12:31 Ammonia 29.9 umol/L (7-35) 10/26/22 17:13 Total Creatine Kinase 176 IU/L (22-269) 10/26/22 12:31 Total Protein 6.3 g/dL (6.7-8.2) L 10/26/22 12:31 Albumin 3.0 g/dL (3.2-5.5) L 10/26/22 12:31 Globulin 3.3 g/dL (2.1-4.2) 10/26/22 12:31 Albumin/Globulin Ratio 0.9 (1.0-2.2) L 10/26/22 12:31 TSH 7.10 uIU/mL (0.34-5.60) H 10/26/22 12:31 Urine Color YELLOW 10/26/22 12:44 Urine Clarity CLEAR (CLEAR) 10/26/22 12:44 Urine pH 6.0 PH (5.0-7.5) 10/26/22 12:44 Ur Specific [place] >=1.030 (1.002-1.030) H 10/26/22 12:44 Urine Protein 100 mg/dL (NEGATIVE) H 10/26/22 12:44 Urine Glucose (UA) NEGATIVE mg/dL (NEGATIVE) 10/26/22 12:44 Urine Ketones NEGATIVE mg/dL (NEGATIVE) 10/26/22 12:44 Urine Occult Blood MODERATE (NEGATIVE) H 10/26/22 12:44 Urine Nitrite NEGATIVE (NEGATIVE) 10/26/22 12:44 Urine Bilirubin NEGATIVE (NEGATIVE) 10/26/22 12:44 Urine Urobilinogen 0.2 (NORMAL) E.U./dL (NORMAL) 10/26/22 12:44 Ur Leukocyte Esterase NEGATIVE (NEGATIVE) 10/26/22 12:44 Urine RBC 0-5 /HPF (0-5) 10/26/22 12:44 Urine WBC 0-3 /HPF (0-5) 10/26/22 12:44 Ur Squamous Epith Cells FEW Squamous (<= Few) 10/26/22 12:44 Urine Bacteria Few /HPF (None Seen) 10/26/22 12:44 Urine Casts 0-2 Course Granular /LPF0-2 Fine Granular /LPF0-2 Hyaline Casts /LPF 10/26/22 12:44 Urine Casts 0-2 Course Granular /LPF0-2 Fine Granular /LPF0-2 Hyaline Casts /LPF 10/26/22 12:44 Urine Casts 0-2 Course Granular /LPF0-2 Fine Granular /LPF0-2 Hyaline Casts /LPF 10/26/22 12:44 Ur Microscopic Review INDICATED 10/26/22 12:44 Urine Culture Comments NOT INDICATED 10/26/22 12:44 Nasal Adenovirus (PCR) NOT DETECTED 10/26/22 13:00 Nasal B. parapertussis DNA (PCR) NOT DETECTED 10/26/22 13:00 Nasal Coronavir 229E PCR NOT DETECTED 10/26/22 13:00 Nasal Coronavir HKU1 PCR NOT DETECTED 10/26/22 13:00 Nasal Coronavir NL63 PCR NOT DETECTED 10/26/22 13:00 Nasal Coronavir OC43 PCR NOT DETECTED 10/26/22 13:00 Nasal Enterovir/Rhinovir PCR NOT DETECTED 10/26/22 13:00 Nasal Influenza B PCR NOT DETECTED 10/26/22 13:00 Nasal Influenza A PCR NOT DETECTED 10/26/22 13:00 Nasal Parainfluen 1 PCR NOT DETECTED 10/26/22 13:00 Nasal Parainfluen 2 PCR NOT DETECTED 10/26/22 13:00 Nasal Parainfluen 3 PCR NOT DETECTED 10/26/22 13:00 Nasal Parainfluen 4 PCR NOT DETECTED 10/26/22 13:00 Nasal RSV (PCR) NOT DETECTED 10/26/22 13:00 Nasal Screen MRSA (PCR) NEGATIVE (NEGATIVE) 10/26/22 20:30 Nasal B.pertussis DNA PCR NOT DETECTED 10/26/22 13:00 Nasal C.pneumoniae (PCR) NOT DETECTED 10/26/22 13:00 Wilfred Human Metapneumo PCR NOT DETECTED 10/26/22 13:00 Nasal M.pneumoniae (PCR) NOT DETECTED 10/26/22 13:00 Nasal SARS-CoV-2 (PCR) NOT DETECTED 10/26/22 13:00 Salicylates < 6.0 mg/dL 10/26/22 12:31 Urine Opiates Screen NEGATIVE (NEGATIVE) 10/26/22 12:44 Ur Oxycodone Screen NEGATIVE (NEGATIVE) 10/26/22 12:44 Urine Methadone Screen POSITIVE (NEGATIVE) H 10/26/22 12:44 Ur Propoxyphene Screen NEGATIVE (NEGATIVE) 10/26/22 12:44 Acetaminophen < 10 ug/mL (10-30) L 10/26/22 12:31 Ur Barbiturates Screen NEGATIVE (NEGATIVE) 10/26/22 12:44 Ur Tricyclics Screen NEGATIVE (NEGATIVE) 10/26/22 12:44 Ur Phencyclidine Scrn NEGATIVE (NEGATIVE) 10/26/22 12:44 Ur Amphetamine Screen NEGATIVE (NEGATIVE) 10/26/22 12:44 U Methamphetamines Scrn NEGATIVE (NEGATIVE) 10/26/22 12:44 U Benzodiazepines Scrn NEGATIVE (NEGATIVE) 10/26/22 12:44 Urine Cocaine Screen NEGATIVE (NEGATIVE) 10/26/22 12:44 U Cannabinoids Screen POSITIVE (NEGATIVE) H 10/26/22 12:44 Ethyl Alcohol < 5.0 mg/dL 10/26/22 12:31
--- NOTE | 2022-10-29 11:50 | XRAY Report ---
PROCEDURE: Chest 1 View X-Ray INDICATIONS: Pleuritic chest pain R and center TECHNIQUE: One view of the chest was acquired. COMPARISON: 10/26/2022, CT and radiograph FINDINGS: Surgical changes and devices: There is a stable right-sided central line. Lungs and pleura: The right lung appears better aerated on the current study than on the prior. Abno rmal interstitial prominence can be seen, particularly superiorly. On the semiupright images, no larg e pneumothorax or large pleural effusions can be seen. Mediastinum: Mediastinal contours appear normal. Heart size is normal. Bones and chest wall: No suspicious bony lesions. Age-appropriate degenerative changes are seen. Overlying soft tissues appear unremarkable. IMPRESSION: Improved aeration of the right lung compared to the prior chest radiograph. Abnormal interstitial prominence can be seen, particularly superiorly. Please consider pulmonary douglas a. Differential diagnosis includes atypical infiltrate, however. Stable right-sided central line. Reviewed by: Sukhdev Husain MD on 10/29/2022 10:49 AM [facility] Approved by: Sukhdev Husain MD on 10/29/2022 10:49 AM [facility] Station ID: [id number]
[2022-10-29] MEDS: LIDOCAINE PATCH 5% TOP PRN (13:53)
[2022-10-29] MEDS: ONDANSETRON 4 MG/2 ML VIAL IVP PRN ×2 (15:30→22:32)
[2022-10-29] MEDS: PROCHLORPERAZINE 10 MG/2 ML VIAL IVP PRN (19:48)
[2022-10-29] MEDS: clonazePAM 0.5 MG TABLET PO PRN (22:38)
[2022-10-30] MEDS: SODIUM CHLORIDE FLUSH 0.9% 10 ML SYRINGE IVP SCH ×4 (01:19→23:47)
[2022-10-30] MEDS: PROCHLORPERAZINE 10 MG/2 ML VIAL IVP PRN ×2 (03:45→13:01)
[2022-10-30] MEDS: oxyCODONE 5 MG TABLET PO PRN ×2 (03:49→16:18)
[2022-10-30] MEDS: PANTOPRAZOLE 40 MG TABLET PO SCH (05:16)
[2022-10-30 05:42] LABS: BASOPHILS % (AUTO) 0.1 %; HCT - HEMATOCRIT 37.2 % (37.0-47.0); HGB - HEMOGLOBIN 11.5 g/dL (12.0-16.0); LYMPHOCYTES # (AUTO) 0.8 10^3/uL (1.5-3.5); LYMPHOCYTES % (AUTO) 6.5 %; MEAN CORPUSCULAR HEMOGLOBIN 24.1 pg (27.0-31.0); MEAN CORPUSCULAR HGB CONC 30.9 g/dL (32.0-36.0); MEAN PLATELET VOLUME 10.6 fL (7.9-10.8); MONOCYTES # (AUTO) 0.8 10^3/uL (0.0-1.0); MONOCYTES % (AUTO) 6.2 %; NEUTROPHILS # (AUTO) 10.6 10^3/uL (1.5-6.6); NEUTROPHILS % (AUTO) 86.2 %; PLT - PLATELET COUNT 332 10^3/uL (130-450); RED BLOOD COUNT 4.77 10^6/uL (4.20-5.40); RED CELL DISTRIBUTION WIDTH 15.4 % (12.0-15.0); WHITE BLOOD COUNT 12.3 x10^3/uL (4.8-10.8)
[2022-10-30 05:52] LABS: CALCIUM 8.1 mg/dL (8.5-10.3); CREATININE 1.4 mg/dL (0.4-1.0); POTASSIUM 3.7 mmol/L (3.5-5.0)
[2022-10-30] MEDS: HYDROmorphone 1 MG/ML CARPUJECT IVP PRN ×2 (06:26→08:27)
[2022-10-30] MEDS: DULoxetine 30 MG CAPSULE PO SCH (08:26)
[2022-10-30] MEDS: dexAMETHasone 4 MG TABLET PO SCH ×4 (08:26→21:01)
[2022-10-30] MEDS: METOPROLOL SUCCINATE 50 MG TABLET PO SCH (08:26)
[2022-10-30] MEDS: ENOXAPARIN 30 MG/0.3 ML SYRINGE SUBQ SCH (08:26)
[2022-10-30] MEDS ORDERED: SODIUM CHLORIDE 0.9% 1,000 ML IV SCH (10:00)
[2022-10-30] MEDS: HYDROmorphone 2 MG TABLET PO PRN ×2 (13:01→19:13)
--- NOTE | 2022-10-30 14:19 | PROVIDER PROGRESS NOTE ---
Assessment/Plan - Problem List (1) Lung cancer metastatic to brain Assessment/Plan: Patient is a smoker, and the lung tumor is likely related to that. She declined cancer treatment in the past, per Hx. At this time, no treatment being offered for the cancer. She most likely has a postobstructive picture by CT chest, since complete collapse of that right lower lung was seen. Brain shows evidence of possible tumor but no abscess. Plan: We are empirically continuing Decadron Pain meds are being adjusted to control the pleuritic and chest wall pain and her headache. Probable DCh tomorrow, if today's adjustment in pain meds controls her pain. (2) Obtundation Conclusion/Plan: A gradually worsening confusion and obtundation was described over the last couple of weeks. Patient was spending more more time in bed. Prior to this, the confusion was attributed to "dementia". Daughter does not remember a CT or an MRI being done to evaluate the dementia. There is also the question of the bottle of Haldol that was found at the bedside. Possibly she took an overdose of Haldol, before presentation. Other factors to cause obtundation would be electrolyte derangement, postobstructive pneumonia, tumor necrosis, and liver disease (she has a history of hepatitis). Ammonia level is normal. White cell count is coming down without antibiotics. She has had no arrhythmias She was extubated and is out of ICU for several days. She has not gotten out of bed, is too weak. She is overall sleepy, likely from narcotics. Plan: Continue decadron for mets. She is a DNR/DNI now The family has decided to take her home for comfort care and have Hospice take her on as a pt. Hospice will do that next week. Probable DCh tomorrow, if today's adjustment in pain meds controls her pain. Will allow comfort eating. Will stop additional iv fluids and will stop lab draws. (3) TAQUERIA Improving. It was probably due to hypotension at the scene. I suspect low flow state causing an abrupt rise in creat, since CT of abd was w/o hydronephrosis (no obstruction) and no renal toxic drugs were being taken. Creatinine on admission was 1.7. then 2.2 >>2.1>> 1.4 yesterday and today. Plan: Stopping iv fluids Avoid nephrotoxins (4) HTN Since extubation she has had blood pressure as high as 1 90-200 systolic. Her home med list shows she is on metoprolol Plan: Will resume metoprolol today (5) Headache Resolved. This is likely from the brain met. She was mostly complaining of a headache, after extubation. Morphine IV dosing was not touching it. Yesterday Dilaudid was started. Today oxycodone orally was given so she can transition to an oral narcotic and it has worked. Plan: Continue Oxycodone for pain 4-8, or Dilaudid if pain >8. (6) Pleuritic chest pain Assessment/Plan: Resolved with higher narcotics and starting Lidocaine patch. There is a history of discomfort in the right and center of chest. Today she told her nurse the pain is worse in that same area. The pain is also worsened by taking a deep breath. This is likely pain from her lung tumor. The CT scan showed that the tumor is causing an obstruction of the right lower lobe Plan: Will obtain chest x-ray today Continue with narcotic pain meds, and will add a topical lidocaine patch If the tumor seems to be invading the rib cage, she will need aggressive IV narcotic treatment, and may be a candidate for hospice GIP status. (7) Respiratory arrest Impression: This is how she presented This unfortunate female has had a gradually progressive illness, most likely terminal. Although she was in the midst of trying to figure out and was possib ly considering treatment for this illness, I think the natural progression of disease snuck up on her faster than she realized. By description she was obtunded, hypothermic, hypoglycemic and was guppy breathing with agonal respiration at the scene. She may have already been dying and we have stepped in the way of that with our resuscitative efforts. In speaking to her next of kin on the night of admission, daughter feels that what was happening. She started CPR only because her mom wanted to be a full code. But in putting together the whole picture, she and her mom had discussed that mom would not want to be this way. Mom wanted CPR and resuscitation because she felt like she still has some quality of life left, and that she could be in this intermediate state of disease status a bit longer. Clearly, this was not the case with today's arrest. On the night of admission daughter sheron anted us to continue supportive care. She wanted family to be able to say goodbye. She has her brother in [place], and her son in [place]. However [facility] is closed and family is not able to completely be together. She was hypotensive enough to require Levophed on admission. By yesterday morning on October 27 Levophed was taken off and she had soft blood pressures during the day. As the day progressed and over the night she is now mildly hypertensive in the 160s. She was extubated and is out of ICU. Getting suppl O2 (8) Hypotension Resolved. - Current Meds Current Meds: Current Medications Generic Name Dose Route Start Last Admin Trade Name Freq PRN Reason Stop Dose Admin Clonazepam 1 mg 10/29/22 09:17 10/29/22 22:38 Clonazepam 0.5 Mg Tablet PO 1 mg QPM PRN Administration Anxiety Dexamethasone 4 mg 10/28/22 13:00 10/30/22 13:01 Dexamethasone 4 Mg Tablet PO 4 mg QID OMARI Administration Duloxetine HCl 60 mg 10/29/22 10:00 10/30/22 08:26 Duloxetine 30 Mg Capsule PO 60 mg DAILY OMARI Administration Enoxaparin Sodium 30 mg 10/28/22 09:00 10/30/22 08:26 Enoxaparin 30 Mg/0.3 Ml Syringe SUBQ 30 mg DAILY OMARI Administration Hydromorphone HCl 2 mg 10/30/22 11:06 10/30/22 13:01 Hydromorphone 2 Mg Tablet PO 2 mg Q6HR PRN Administration Severe Pain Lidocaine 1 patch 10/29/22 12:04 10/29/22 13:53 Lidocaine Patch 5% TOP 1 patch DAILY PRN Administration PAIN Metoprolol Succinate 50 mg 10/29/22 10:00 10/30/22 08:26 Metoprolol Succinate 50 Mg Tablet PO 50 mg DAILY OMARI Administration Ondansetron HCl 4 mg 10/26/22 16:17 10/29/22 22:32 Ondansetron 4 Mg/2 Ml Vial IVP 4 mg Q6HR PRN Administration Nausea / Vomiting Oxycodone HCl 5 mg 10/29/22 09:13 10/30/22 03:49 Oxycodone 5 Mg Tablet PO 5 mg Q8HR PRN Administration PAIN 5-7 Pantoprazole Sodium 40 mg 10/28/22 11:00 10/30/22 05:16 Pantoprazole 40 Mg Tablet PO 40 mg QDAC OMARI Administration Prochlorperazine Edisylate 10 mg 10/29/22 18:13 10/30/22 13:01 Prochlorperazine 10 Mg/2 Ml Vial IVP 10 mg Q6HR PRN Administration Nausea / Vomiting Sodium Chloride 20 ml 10/26/22 20:55 10/29/22 13:29 Sodium Chloride Flush 0.9% 10 Ml Syringe IVP 20 ml PRN PRN Administration After Blood Draw Sodium Chloride 10 ml 10/27/22 01:00 10/30/22 08:26 Sodium Chloride Flush 0.9% 10 Ml Syringe IVP 20 ml 0100,0900,1700 OMARI Administration Sodium Chloride 10 ml 10/26/22 20:55 10/29/22 22:33 Sodium Chloride Flush 0.9% 10 Ml Syringe IVP 10 ml PRN PRN Administration Per Line Care protocol - Lab Result Fish Bone Diagrams: 10/30/22 05:20 10/30/22 05:20 - Additional Planning My Orders: My Active Orders 10/29/22 18:13 Prochlorperazine Inj [Compazine Inj] 10 mg IVP Q6HR PRN 10/30/22 11:06 HYDROmorphone [Dilaudid] 2 mg PO Q6HR PRN Subjective - Subjective Patient Reports: Other (Asking for more food) Objective Vital Signs: Vital Signs - 24 hr 10/29/22 10/30/22 10/30/22 16:20 00:00 08:36 Temperature 36.5 C 37.1 C 37.3 C Heart Rate [ 75 62 Brachial] Heart Rate [ 65 Monitoring electrodes] Respiratory 18 18 18 Rate Blood Pressure 197/94 H [Left Brachial artery] Blood Pressure 149/80 H 161/88 H [Right Brachial artery] O2 Saturation 95 93 94 If not protocol 3 3 3 : Oxygen Flow, liters/minute Oxygen O2 Source Nasal cannula I&O (Last 24 Hrs): Intake and Output Totals x24h 10/28/22 10/29/22 10/30/22 23:59 23:59 23:59 Intake Total 9555.976 7694.333 490 Output Total 9035 3200 150 Balance -1581.634 -1545.667 340 General: No acute distress (Is lethargic, speaking with slurred speech) HEENT: Mucous membr. moist/pink, Other (Disheveled) Neck: Supple, No JVD Neuro: Disoriented, Other (has generalized weakness) Cardiovascular: No murmurs (distant heart sounds) Abdomen: Normal bowel sounds, Soft, No tenderness Extremities: No clubbing, Other (Trace edema) - Results Results: Laboratory Results WBC 12.3 x10^3/uL (4.8-10.8) H 10/30/22 05:20 RBC 4.77 10^6/uL (4.20-5.40) 10/30/22 05:20 Hgb 11.5 g/dL (12.0-16.0) L 10/30/22 05:20 Hct 37.2 % (37.0-47.0) 10/30/22 05:20 MCV 78.0 fL (81.0-99.0) L 10/30/22 05:20 MCH 24.1 pg (27.0-31.0) L 10/30/22 05:20 MCHC 30.9 g/dL (32.0-36.0) L 10/30/22 05:20 RDW 15.4 % (12.0-15.0) H 10/30/22 05:20 Plt Count 332 10^3/uL (130-450) 10/30/22 05:20 MPV 10.6 fL (7.9-10.8) 10/30/22 05:20 Neut # (Auto) 10.6 10^3/uL (1.5-6.6) H 10/30/22 05:20 Lymph # (Auto) 0.8 10^3/uL (1.5-3.5) L 10/30/22 05:20 Allen # (Auto) 0.8 10^3/uL (0.0-1.0) 10/30/22 05:20 Eos # (Auto) 0.0 10^3/uL (0.0-0.7) 10/30/22 05:20 Baso # (Auto) 0.0 10^3/uL (0.0-0.1) 10/30/22 05:20 Absolute Nucleated RBC 0.00 x10^3/uL 10/30/22 05:20 Total Counted 100 10/26/22 12:31 Band Neuts % (Manual) 3 % (0-10) 10/26/22 12:31 Abnorm Lymph % (Manual) 0 % 10/26/22 12:31 Myelocytes % 1 % (-0) H 10/26/22 12:31 Nucleated RBC % 0.0 /100WBC 10/30/22 05:20 Neutrophils # (Manual) 29.9 10^3/uL (1.5-6.6) H 10/26/22 12:31 Lymphocytes # (Manual) 1.4 10^3/uL (1.5-3.5) L 10/26/22 12:31 Monocytes # (Manual) 2.8 10^3/uL (0.0-1.0) H 10/26/22 12:31 Eosinophils # (Manual) 0.0 10^3/uL (0-0.7) 10/26/22 12:31 Basophils # (Manual) 0.0 10^3/uL (0-0.1) 10/26/22 12:31 Differential Comment MANUAL DIFFERENTIAL 10/26/22 12:31 PT 12.7 secs (9.9-12.6) H 10/26/22 12:31 INR 1.1 (0.8-1.2) 10/26/22 12:31 Bld Gas Analysis Time 0540 10/28/22 05:30 Sample Site RIGHT BRACHIAL 10/28/22 05:30 ABG pH 7.38 (7.35-7.45) 10/28/22 05:30 ABG pCO2 29 mmHg (34-45) L 10/28/22 05:30 ABG pO2 136 mmHg (80-100) H 10/28/22 05:30 ABG HCO3 17.0 mmol/L (22.0-26.0) L 10/28/22 05:30 ABG Total CO2 17.9 MMOL/L (21.0-29.0) L 10/28/22 05:30 ABG O2 Saturation 98 % (94-98) 10/28/22 05:30 ABG Base Excess -7.0 mmol/L (-2.0-3.0) L 10/28/22 05:30 Henok Test NOT APPLICABLE 10/28/22 05:30 VBG pH 7.369 (7.31-7.41) 10/29/22 06:28 VBG pCO2 52.2 mmHg (41-51) H 10/26/22 15:34 VBG pO2 59.4 mmHg (25-47) H 10/26/22 15:34 VBG HCO3 21.5 mmol/L (23-28) L 10/26/22 15:34 VBG Total CO2 23.1 mmol/L (24-29) L 10/26/22 15:34 VBG O2 Saturation 90.2 % (60-80) H 10/26/22 15:34 VBG Base Excess -6.3 mmol/L (-2 - +2) L 10/26/22 15:34 Ionized Calcium 1.10 mmol/L (1.15-1.33) L 10/29/22 06:28 Respiration Rate 18 b/min 10/28/22 05:30 O2 Delivery Device VENTILATOR 10/28/22 05:30 Vent Mode SIMV 10/28/22 05:30 FiO2 30.00 10/28/22 05:30 Tidal Volume 450 mL 10/28/22 05:30 PEEP 5 cmH2O 10/28/22 05:30 Pressure Support Vent 10 cmH2O 10/28/22 05:30 Sodium 136 mmol/L (135-145) 10/30/22 05:20 Potassium 3.7 mmol/L (3.5-5.0) 10/30/22 05:20 Chloride 100 mmol/L (101-111) L 10/30/22 05:20 Carbon Dioxide 25 mmol/L (21-32) 10/30/22 05:20 Anion Gap 11.0 (6-13) 10/30/22 05:20 BUN 37 mg/dL (6-20) H 10/30/22 05:20 Creatinine 1.4 mg/dL (0.4-1.0) H 10/30/22 05:20 Estimated GFR (MDRD) 38 (>89) L 10/30/22 05:20 Glucose 118 mg/dL (70-100) H 10/30/22 05:20 Lactic Acid 2.0 mmol/L (0.5-2.2) 10/26/22 12:31 Calcium 8.1 mg/dL (8.5-10.3) L 10/30/22 05:20 Phosphorus 4.7 mg/dL (2.5-4.6) H 10/28/22 04:20 Magnesium 2.4 mg/dL (1.7-2.8) 10/28/22 04:20 Total Bilirubin 0.4 mg/dL (0.2-1.0) 10/26/22 12:31 AST 64 IU/L (10-42) H 10/26/22 12:31 ALT 19 IU/L (10-60) 10/26/22 12:31 Alkaline Phosphatase 49 IU/L (42-121) 10/26/22 12:31 Ammonia 29.9 umol/L (7-35) 10/26/22 17:13 Total Creatine Kinase 176 IU/L (22-269) 10/26/22 12:31 Total Protein 6.3 g/dL (6.7-8.2) L 10/26/22 12:31 Albumin 3.0 g/dL (3.2-5.5) L 10/26/22 12:31 Globulin 3.3 g/dL (2.1-4.2) 10/26/22 12:31 Albumin/Globulin Ratio 0.9 (1.0-2.2) L 10/26/22 12:31 TSH 7.10 uIU/mL (0.34-5.60) H 10/26/22 12:31 Urine Color YELLOW 10/26/22 12:44 Urine Clarity CLEAR (CLEAR) 10/26/22 12:44 Urine pH 6.0 PH (5.0-7.5) 10/26/22 12:44 Ur Specific [place] >=1.030 (1.002-1.030) H 10/26/22 12:44 Urine Protein 100 mg/dL (NEGATIVE) H 10/26/22 12:44 Urine Glucose (UA) NEGATIVE mg/dL (NEGATIVE) 10/26/22 12:44 Urine Ketones NEGATIVE mg/dL (NEGATIVE) 10/26/22 12:44 Urine Occult Blood MODERATE (NEGATIVE) H 10/26/22 12:44 Urine Nitrite NEGATIVE (NEGATIVE) 10/26/22 12:44 Urine Bilirubin NEGATIVE (NEGATIVE) 10/26/22 12:44 Urine Urobilinogen 0.2 (NORMAL) E.U./dL (NORMAL) 10/26/22 12:44 Ur Leukocyte Esterase NEGATIVE (NEGATIVE) 10/26/22 12:44 Urine RBC 0-5 /HPF (0-5) 10/26/22 12:44 Urine WBC 0-3 /HPF (0-5) 10/26/22 12:44 Ur Squamous Epith Cells FEW Squamous (<= Few) 10/26/22 12:44 Urine Bacteria Few /HPF (None Seen) 10/26/22 12:44 Urine Casts 0-2 Course Granular /LPF0-2 Fine Granular /LPF0-2 Hyaline Casts /LPF 10/26/22 12:44 Urine Casts 0-2 Course Granular /LPF0-2 Fine Granular /LPF0-2 Hyaline Casts /LPF 10/26/22 12:44 Urine Casts 0-2 Course Granular /LPF0-2 Fine Granular /LPF0-2 Hyaline Casts /LPF 10/26/22 12:44 Ur Microscopic Review INDICATED 10/26/22 12:44 Urine Culture Comments NOT INDICATED 10/26/22 12:44 Nasal Adenovirus (PCR) NOT DETECTED 10/26/22 13:00 Nasal B. parapertussis DNA (PCR) NOT DETECTED 10/26/22 13:00 Nasal Coronavir 229E PCR NOT DETECTED 10/26/22 13:00 Nasal Coronavir HKU1 PCR NOT DETECTED 10/26/22 13:00 Nasal Coronavir NL63 PCR NOT DETECTED 10/26/22 13:00 Nasal Coronavir OC43 PCR NOT DETECTED 10/26/22 13:00 Nasal Enterovir/Rhinovir PCR NOT DETECTED 10/26/22 13:00 Nasal Influenza B PCR NOT DETECTED 10/26/22 13:00 Nasal Influenza A PCR NOT DETECTED 10/26/22 13:00 Nasal Parainfluen 1 PCR NOT DETECTED 10/26/22 13:00 Nasal Parainfluen 2 PCR NOT DETECTED 10/26/22 13:00 Nasal Parainfluen 3 PCR NOT DETECTED 10/26/22 13:00 Nasal Parainfluen 4 PCR NOT DETECTED 10/26/22 13:00 Nasal RSV (PCR) NOT DETECTED 10/26/22 13:00 Nasal Screen MRSA (PCR) NEGATIVE (NEGATIVE) 10/26/22 20:30 Nasal B.pertussis DNA PCR NOT DETECTED 10/26/22 13:00 Nasal C.pneumoniae (PCR) NOT DETECTED 10/26/22 13:00 Wilfred Human Metapneumo PCR NOT DETECTED 10/26/22 13:00 Nasal M.pneumoniae (PCR) NOT DETECTED 10/26/22 13:00 Nasal SARS-CoV-2 (PCR) NOT DETECTED 10/26/22 13:00 Salicylates < 6.0 mg/dL 10/26/22 12:31 Urine Opiates Screen NEGATIVE (NEGATIVE) 10/26/22 12:44 Ur Oxycodone Screen NEGATIVE (NEGATIVE) 10/26/22 12:44 Urine Methadone Screen POSITIVE (NEGATIVE) H 10/26/22 12:44 Ur Propoxyphene Screen NEGATIVE (NEGATIVE) 10/26/22 12:44 Acetaminophen < 10 ug/mL (10-30) L 10/26/22 12:31 Ur Barbiturates Screen NEGATIVE (NEGATIVE) 10/26/22 12:44 Ur Tricyclics Screen NEGATIVE (NEGATIVE) 10/26/22 12:44 Ur Phencyclidine Scrn NEGATIVE (NEGATIVE) 10/26/22 12:44 Ur Amphetamine Screen NEGATIVE (NEGATIVE) 10/26/22 12:44 U Methamphetamines Scrn NEGATIVE (NEGATIVE) 10/26/22 12:44 U Benzodiazepines Scrn NEGATIVE (NEGATIVE) 10/26/22 12:44 Urine Cocaine Screen NEGATIVE (NEGATIVE) 10/26/22 12:44 U Cannabinoids Screen POSITIVE (NEGATIVE) H 10/26/22 12:44 Ethyl Alcohol < 5.0 mg/dL 10/26/22 12:31
[2022-10-30] MEDS: ACETAMINOPHEN 325 MG TABLET PO PRN ×2 (16:18→23:47)
[2022-10-30] MEDS: ONDANSETRON 4 MG/2 ML VIAL IVP PRN (16:18)
[2022-10-30] MEDS: LIDOCAINE PATCH 5% TOP PRN (16:19)
[2022-10-30] MEDS: SODIUM CHLORIDE FLUSH 0.9% 10 ML SYRINGE IVP PRN (16:21)
[2022-10-30] MEDS: clonazePAM 0.5 MG TABLET PO PRN (21:06)
[2022-10-31] MEDS: HYDROmorphone 2 MG TABLET PO PRN ×2 (01:57→08:13)
[2022-10-31] MEDS: oxyCODONE 5 MG TABLET PO PRN ×2 (05:07→13:18)
[2022-10-31] MEDS: PANTOPRAZOLE 40 MG TABLET PO SCH (05:07)
[2022-10-31 06:55] LABS: BASOPHILS % (AUTO) 0.1 %; HCT - HEMATOCRIT 39.3 % (37.0-47.0); HGB - HEMOGLOBIN 12.2 g/dL (12.0-16.0); LYMPHOCYTES # (AUTO) 0.9 10^3/uL (1.5-3.5); LYMPHOCYTES % (AUTO) 8.6 %; MEAN CORPUSCULAR HEMOGLOBIN 23.8 pg (27.0-31.0); MEAN CORPUSCULAR VOLUME 76.8 fL (81.0-99.0); MEAN PLATELET VOLUME 10.5 fL (7.9-10.8); MONOCYTES # (AUTO) 0.9 10^3/uL (0.0-1.0); MONOCYTES % (AUTO) 8.6 %; NEUTROPHILS # (AUTO) 8.9 10^3/uL (1.5-6.6); NEUTROPHILS % (AUTO) 81.6 %; PLT - PLATELET COUNT 340 10^3/uL (130-450); RED BLOOD COUNT 5.12 10^6/uL (4.20-5.40); RED CELL DISTRIBUTION WIDTH 15.1 % (12.0-15.0); WHITE BLOOD COUNT 10.9 x10^3/uL (4.8-10.8)
[2022-10-31 07:08] LABS: CALCIUM 8.3 mg/dL (8.5-10.3); CREATININE 1.4 mg/dL (0.4-1.0); POTASSIUM 3.6 mmol/L (3.5-5.0)
[2022-10-31] MEDS: DULoxetine 30 MG CAPSULE PO SCH (08:13)
[2022-10-31] MEDS: METOPROLOL SUCCINATE 50 MG TABLET PO SCH (08:13)
[2022-10-31] MEDS: dexAMETHasone 4 MG TABLET PO SCH ×2 (08:13→13:18)
[2022-10-31] MEDS: SODIUM CHLORIDE FLUSH 0.9% 10 ML SYRINGE IVP SCH (08:14)
[2022-10-31] MEDS: ENOXAPARIN 30 MG/0.3 ML SYRINGE SUBQ SCH (08:14)
[2022-10-31 08:24] VITALS: BP 171/84
[2022-10-31] MEDS ORDERED: polyethylene glycoL 3350 17 GM PACKET PO SCH (09:00)
--- NOTE | 2022-10-31 12:00 | Discharge Plan ---
Discharge Plan Problem Reviewed?: Yes Disposition: Home, Self Care Condition: Poor Prescriptions: HYDROmorphone [Dilaudid] 2 mg PO Q6HR PRN #20 tab PRN Reason: Severe Pain Ondansetron Odt [Zofran Odt] 4 mg TL Q6HR PRN #14 tab PRN Reason: Nausea / Vomiting Lidocaine Patch 5% [Lidoderm Patch] 1 patch TOP DAILY PRN #30 patch PRN Reason: Pain Diet: Soft Activity Restrictions: Activity as Tolerated Driving Restrictions: Yes Weight Bearing: Partial Weight (Patient may use bedsdie commode) Instruction Topics: Catheter Bag Urinary Empty Clean, [facility] Con[facility]ns: Patient was brought in by ambulance after she was found down at home and family members did CPR. She was intubated and on a ventilator and eventually was able to be extubated. A bottle of Haldol was found at the scene, so we thought she may have taken an excessive amount. She also uses a lot of marijuana, per family description. The patient has a history of lung cancer with metastasis to the brain. After extubation off the ventilator, she was able to tell us about pain in her chest and headaches. These are from the tumors. For these she required increasing doses of narcotics for pain control. She has become much more weak and is sleepy when on narcotics and is now spending time mostly in bed. The decision by family is to have her get comfort care only and the Hospice Service will be taking her on as their patient, in bout 2 days, to help with end-of-life care. Plan of Treatment: The primary goal is to have her comfortable, not experiencing terrible pain. She may be given whatever diet she wants. This is "comfort eating" which means what ever she wants to take in, as long as she does not aspirate it into her lungs. The Hospice nurse and Hospice staff will teach the family about what to expect, and how to give the patient her medications as she continues to decline. Prescriptions for pain control and other medications were electronically sent to her [facility] pharmacy in [place]. She should be on oxygen now, which was ordered for the home. The setting should be 2 L/min oxygen at rest and 3 L/min with any activity (like going to the bathroom). She is going home with a Bearden catheter to help her drain her bladder, and teaching the family about emptying the bag was done. Hospice staff can give you more instructions if needed. Care Goals: Comfort is the primary goal. Assessment: The family is agreeable with the plan. Additional Instructions or Follow Up instructions: If the patient has new or worrisome symptoms, call her Primary Care Provider for the next 2-3 days, for advice. Once Hospice takes her on as there patient, call the Hospice service to get instructions and advice. Follow-Up Care: Hospice No Smoking: If you smoke, Please STOP! Call for help. Follow-up with: Katherine Chinchilla MD [Provider Admit Priv/Credential] -
--- NOTE | 2022-10-31 14:10 | DISCHARGE SUMMARY ---
Discharge Summary Admit Date: 10/26/22 Discharge Date: 10/31/22 Discharging Provider: Dr Rosario Love Code Status: Do Not Attempt Resuscitation Condition at Discharge: Poor Discharge Disposition: 01 Home, Self Care - HPI History of Present Illness: This unfortunate lady was seen at [facility] a few weeks ago. 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 The patient did not want treat ment and came home. She has been home about 2 weeks and trying to decide if she wanted treatment or not. She and her daughter were reading articles they could find on the internet. More on the side of not wanting treatment. She has been getting more and more obtunded, and spends more time in bed sleeping. When she becomes very confused family would put her back to bed. She was last seen arou nd 1 AM. When family heard her up and about at 5 AM this morning, they put her back to bed. They went to go check on her and found her unresponsive at 11 AM. An empty bottle of Haldol was next to her. That bottle was used to treat the patient's mother who of metastatic cancer and was left over from the hospice encounter. It is unclear if this patient took Haldol or not. She was found almost not breathing. CPR was started by daughter. They called EMS. Her systolic blood pressure was in the 80s. Pulse 93. Blood sugar 78 and given 1/4 amp of D50 and Intubated because of apnea. Brought to the emergency room. She has been aggressively resuscitated in the emergency room. Core body temperature was 35.8. Heart rate 93. Blood pressure 104/61. Respirations 18. And she is 99% on the vent. Levophed was started when her systolic blood pressure went to 76/54. Her laboratory work showed a potassium of 2.7. Chloride 112. BUN 37, creatinine 1.7. Glucose was 13 in spite of the interventions in the field and she is received 2 more treatments with D50 and is now on a D10 drip. Glucose is up to 141. Calcium was 6.1 and supplemented. Phosphorus is 6.6. Magnesium 0.8. TSH is 7.10. White cell count is 34,000. Initial blood gas showed a pH of 7.21, PCO2 54, O2 268. This is on assist- control ventilator, respiratory rate 16, tidal volume 450, PEEP of 5. Toxicology is positive for methadone, cannabinoids but negative for everything else. Imaging was done including chest x-ray, head CT, cervical spine CT, chest CT and abdomen pelvis CT. She has collapse of the right lower lobe, liver and spleen are normal. No metastatic disease notified in the liver. Pancreas is normal. Kidneys are normal. She has hypodensity in the deep white matter of the posterior left temporal region likely representing vasogenic edema. This raises the question of underlying malignancy, potentially representing a subacute infarct and as well. There recommending a brain MRI with and without contrast. Daughter is next of kin. No formal POA paperwork done. She wants her mother to be a DNR now. - HOSPITAL COURSE Hospital Course: (1) Respiratory arrest This was how she presented. She was on the vent because she was obtunded, hypothermic, hypoglycemic and was guppy breathing with agonal respirations at the scene. The daughter started CPR only because her mom wanted to be a full code. Daughter stated that Mom wanted CPR and resuscitation because she felt like she still has some quality of life left, and that she could be in this state of disease status (lung CA with brain mets) a bit longer. On the night of admission daughter wanted us to continue supportive care so family could say goodbye. She was able to extubated and was out of ICU. She needed suppl O2. She is a DNR/DNI now. She was referred to the Hospice service and the patient was eventually sent home to be under the care of Hospice service soon. (2) Hypotension She was hypotensive enough to require Levophed on admission. Then she was taken off Levophed and she had soft blood pressures that progressed to be mildly hypertensive in the 160s. (3) Lung cancer metastatic to brain Patient is a smoker, and the lung tumor is likely related to that. She declined cancer treatment in the past, per Hx. And this time, no treatment was offered for the cancer. She most likely had a postobstructive picture by CT chest, since complete collapse of that right lower lung was seen. Brain showed evidence of possible tumor but no abscess. We were empirically giving iv Decadron for the mets and adjusted meds to control pleuritic and chest wall pain and her headache. (4) Obtundation A gradually worsening confusion and obtundation was described over the last couple of weeks. Patient was spending more more time in bed. Prior to this, the confusion was attributed to "dementia". There was also the bottle of Haldol that was found at her bedside. Possibly she took an overdose of Haldol, before presentation. Other factors to cause obtundation were electrolyte derangement, postobstructive pneumonia, tumor necrosis, and liver disease (she has a history of hepatitis). Ammonia level was normal. White cell count came down without antibiotics. She was overall sleepy, likely from narcotics, barely got out of bed. The family decided to take her home for comfort care and have Hospice take her on as a pt. (5) Headache This was likely from the brain met. She needed narcotics for control. (6) Pleuritic chest pain Resolved with higher narcotic doses and we started Lidocaine patch. (7) TAQUERIA It was probably due to hypotension at the scene, causing an abrupt rise in creat, since CT of abd was w/o hydronephrosis (no obstruction) and no renal toxic drugs were being taken. This improved. (8) HTN After extubation she had blood pressure as high as 190-200 systolic. We resumed her metoprolol - ALLERGIES Allergies/Adverse Reactions: Allergies Allergy/AdvReac Type Severity Reaction Status Date / Time Penicillins AdvReac Rash Verified 10/28/22 17:31 - MEDICATIONS Home Medications: Ambulatory Orders Medication Instructions Recorded Confirmed Albuterol Sulf [Ventolin Hfa 1 - 2 puffs INH Q4HR PRN 10/26/22 10/26/22 Inhaler] Duloxetine HCl [Cymbalta] 60 mg PO DAILY 10/26/22 10/26/22 Metoprolol Succinate [Toprol Xl] 50 mg PO DAILY 10/26/22 10/26/22 Omeprazole Magnesium 20 mg PO DAILY 10/26/22 10/26/22 Promethazine [Phenergan] 25 mg PO Q6H PRN 10/26/22 10/26/22 Trazodone HCl 300 mg PO HS 10/26/22 10/26/22 clonazePAM [Clonazepam] 1 mg PO QPM PRN 10/26/22 10/27/22 methocarbamoL [Methocarbamol] 750 mg PO TID 10/26/22 10/27/22 oxyCODONE [Roxicodone] 5 mg PO Q8HR PRN 10/26/22 10/26/22 Acetaminophen [Tylenol] 650 mg PO Q4HR PRN tab 10/31/22 HYDROmorphone [Dilaudid] 2 mg PO Q6HR PRN #20 tab 10/31/22 Lidocaine Patch 5% [Lidoderm Patch] 1 patch TOP DAILY PRN #30 patch 10/31/22 Ondansetron Odt [Zofran Odt] 4 mg TL Q6HR PRN #14 tab 10/31/22 - PHYSICAL EXAM AT DISCHARGE General Appearance: positive: No acute distress, Lethargic Eyes Bilateral: positive: Normal inspection ENT: positive: ENT inspection nml, No signs of dehydration Neck: positive: Nml inspection, No JVD Respiratory: positive: No respiratory distress, Rhonchi Cardiovascular: positive: Regular rate & rhythm, No murmur Abdomen: positive: Non-tender, No distention Skin: positive: Warm, Dry Extremities: positive: Non-tender, Other (Trace pedal edema) Neurologic/Psychiatric: positive: Disoriented to person, Disoriented to place, Disoriented to time, Other (Slurred speech (after narcotics)) - LABS Result Diagrams: 10/31/22 06:16 10/31/22 06:16 - DIAGNOSTIC IMAGING Diagnostic Imaging Results: Final report reviewed - FOLLOW UP Follow Up: Hospice care for end-of-life. - TIME SPENT Time Spent in Discharge (Minutes): 40
== END 2022-10-31 16:07 | disposition home or self-care (01) | DRG 208 ==
LOC: EDBD → EDUNIT# → ED 11:58 → ICU 16:17 → MS2 10-28 12:02
PROVIDERS: ADMIT Specialist; ATTEND Internal Medicine
PROC: 5A1945Z Respiratory Ventilation, 24-96 Consecutive Hours (ICD-10-PCS; principal; 2022-10-26)
DX: R09.2 Respiratory arrest (principal); C34.90 Malignant neoplasm of unspecified part of unspecified bronchus or lung; C79.31 Secondary malignant neoplasm of brain; J98.19 Other pulmonary collapse; N17.9 Acute kidney failure, unspecified; T68.XXXA Hypothermia, initial encounter; I95.9 Hypotension, unspecified; F17.210 Nicotine dependence, cigarettes, uncomplicated; G89.3 Neoplasm related pain (acute) (chronic); R40.1 Stupor; I10 Essential (primary) hypertension; Z66 Do not resuscitate; E16.2 Hypoglycemia, unspecified; E83.42 Hypomagnesemia; E87.6 Hypokalemia; E83.51 Hypocalcemia; Z20.822 Contact with and (suspected) exposure to COVID-19; Z78.1 Physical restraint status
CPT/HCPCS: 36415; 36556; 36600; 43753; 51702; 70450; 71045; 71250; 72125; 74176; 80048; 80053; 80306; 80307; 80320; 80329; 81001; 82140; 82330; 82550; 82803; 83605; 83735; 84100; 84132; 84443; 85025; 85610; 87040; 87150; 87633; 93005; 94002; 94003; 94761; 96365; 96366; 96368; 96375; 96376; 99291; 99292; A9270; J1170; J1650; J3010; J3370; J8540; 81003; 87086; 94770

== ENCOUNTER 2022-10-31 16:31 | Outpatient (CLI) | payer MEDICAID | END 2022-10-31 16:32 | disposition hospice, home (50) | LOC: EMS 16:31 | PROVIDERS: ATTEND Internal Medicine | DX: Z51.5 Encounter for palliative care (principal); R53.1 Weakness; C34.90 Malignant neoplasm of unspecified part of unspecified bronchus or lung; C79.31 Secondary malignant neoplasm of brain; Z74.01 Bed confinement status | CPT/HCPCS: A0425; A0428 ==